=== PATIENT | female | born 1965 | race Caucasian/White ===

== ENCOUNTER 2016-11-08 11:37 | Emergency (ER) | payer SELFPAY ==
[~2016-11-08 11:37] MED LIST: Sodium Chloride 0.9% 1,000 ML BAG ONE
[2016-11-08] MEDS ORDERED: HYDROcodone/Acetaminophen 5/325 mg Tablet ONE (12:11)
[2016-11-08] MEDS ORDERED: Lorazepam 1 MG TAB ONE (12:11)
--- NOTE | 2016-11-08 12:39 | CT ---
CT BRAIN Date: 11-08-16 Provided Clinical History: Headache. Technique: CT data was acquired through the brain without contrast. FINDINGS: Comparison is made with 07-29-16. The ventricular system is unchanged in size and morphology. Right parietal ventriculostomy catheter is redemonstrated in similar position. There is no evidence for discontinuity of the radiopaque po rtions of the shunt catheter. There is no evidence for intracranial hemorrhage or mass effect. The extracranial soft tissues demonstrate no acute findings. IMPRESSION: No evidence for intracranial hemorrhage, ventriculomegaly or mass effect. POS: [facility]
--- NOTE | 2016-11-08 13:19 | RAD ---
SHUNT SERIES: Date: 11-08-16 Provided Clinical History: Headache. FINDINGS: There is intact appearance to the [employer] shunt tubing coursing over the right chest and right abdomen wi th the tip overlying the pelvis. The cardiac and mediastinal silhouette is within normal limits. T here is no focal consolidation, pleural fluid or pneumothorax apparent. The abdominal bowel gas pat tern is nonspecific. Cholecystectomy clips are seen in the right upper quadrant. Surgical degenera tive changes are seen. IMPRESSION: No radiographic evidence for shunt catheter discontinuity. POS: [facility]
[2016-11-08 14:01] LABS: #Basophils 0.1 thou/uL (0.0-0.2); #Eosinphils 0.1 thou/uL (0.0-0.7); #Lymphocytes 2.5 thou/uL (1.20-3.40); #Monocytes 0.4 thou/uL (0.11-0.59); %Basophils 1.5 % (0.0-1.0); %Eosinophils 1.6 % (0.0-10.0); %Lymphocytes 49.3 % (21.0-51.0); %Monocytes 7.4 % (0.0-10.0); %Neutrophils 40.3 % (42.0-75.0); Hemoglobin 12.3 g/dL (12.0-16.0); Mean Corpuscular HGB CONC 33.5 g/dL (32.0-36.0); Mean Corpuscular Hemoglobin 29.5 pg (27.0-31.0); Mean Corpuscular Volume 87.9 fl (81.0-99.0); Mean Platelet Volume 6.9 fL (7.4-10.4); Platelet Count 215 thou/uL (130-400); RBC Distribution Width 13.5 % (11.5-14.5); Red Blood Cell (RBC) Count 4.18 mill/uL (4.20-5.40)
[2016-11-08 14:16] LABS: ALT (SGPT) 26 U/L (0-55); AST (SGOT) 23 U/L (5-34); Albumin 4.2 g/dL (3.5-5.0); Alkaline Phosphatase 100 U/L (40-150); Anion Gap 17 mmol/L (10-20); BUN (Urea Nitrogen) 12 mg/dL (9.8-20.1); Bilirubin, Total 0.3 mg/dL (0.2-1.2); Calc. Creatinine Clearance 0 mL/min (70-130); Calcium 9.4 mg/dL (7.8-10.44); Carbon Dioxide 24 mmol/L (22-29); Chloride 105 mmol/L (98-107); Estimated GFR-MDRD 84; Globulin 3.1 g/dL (2.4-3.5); Glucose 109 mg/dL (70-105); Potassium 4.5 mmol/L (3.5-5.1); Protein, Total 7.3 g/dL (6.0-8.3); Sodium 141 mmol/L (136-145)
[2016-11-08 14:20] LABS: Bilirubin Negative (Negative); Blood, Urine Moderate (Negative); Clarity Slightly Cloudy (Clear); Glucose, Urine (Dipstick) Negative (Negative); Leukocyte Large (Negative); Nitrite Negative (Negative); Protein, Urine (Dipstick) Negative (Neg-Trace); Urobilinogen 0.2 mg/dL (0.2-1.0)
[2016-11-08] MEDS ORDERED: diphenhydrAMINE HCl 50 MG/ML 1 ML VIAL ONE (14:24)
[2016-11-08] MEDS ORDERED: Ketorolac Tromethamine 30 MG/ML VIAL ONE (14:24)
[2016-11-08] MEDS ORDERED: Metoclopramide HCl 10 MG/2 ML VIAL ONE (14:24)
[2016-11-08 14:29] LABS: Bacteria/HPF 2+ HPF (None Seen); WBC/HPF 21-50 HPF (0-3)
[2016-11-08 14:32] LABS: Amphetamine Not Detected (NotDetected); Barbiturates Screen Not Detected (NotDetected); Benzodiazepine Screen Not Detected (NotDetected); Cocaine Metabolite Screen Not Detected (NotDetected); Medtox Control Line Valid? VALID (VALID); Methadone Not Detected (NotDetected); Methamphetamine Not Detected (NotDetected); Opiate Screen Detected (NotDetected); Oxycodone Screen Not Detected (NotDetected); Phencyclidine (PCP) Not Detected (NotDetected); THC/Cannabinoid Screen Not Detected (NotDetected); Tricyclic Screen Not Detected (NotDetected)
--- NOTE | 2016-11-08 15:35 | ERRECORD ---
[facility] EMERGENCY RECORD HPI HEADACHE (12:06 ABUS) CHIEF COMPLAINT: Patient presents for evaluation of headache. HISTORIAN: History provided by patient, 51 yr old F with PMH of normal pressure hydrocephalus, seizures, migraine HUBBARD, asthma, MGMT CONSULTANT shunt here with HUBBARD, vision, changes, and 1 episode of bladder incontinence but no loss of bowel function, perineal or saddle anesthesia, fever. Can walk and has normal sensation to arms and legs. LOCATION: Symptoms are generalized. QUALITY: Pain is dull in nature, described as aching. SEVERITY: Currently symptoms are moderate. TIME COURSE: Gradual onset of symptoms, 2 days, Symptoms are worsening, Symptoms are constant. ASSOCIATED WITH FEMALE: No associated aura, No associated chills, No associated fever, No associated focal weakness, No posterior circulation symptoms present, No associated trauma, No associated tingling, No associated numbness. EXACERBATED BY: Patient's condition exacerbated by light. RELIEVED BY: Patient's condition relieved by nothing. ROS (12:09 ABUS) CONSTITUTIONAL: Negative constitutional review of systems, Historian denies chills, denies fever. EYES: Historian denies eye pain, denies eye redness, denies eye discharge, denies itching, denies nystagmus, reports vision changes. ENT: Negative ears, nose, throat review of systems, Historian denies rhinorrhea, denies sore throat, denies voice changes. CARDIOVASCULAR: Negative cardiovascular review of systems, Historian denies chest pain, denies palpitations. RESPIRATORY: Negative respiratory review of systems, Historian denies cough, denies shortness of breath. GI: Negative gastrointestinal review of systems, Historian denies abdominal pain, denies constipation, denies diarrhea, denies nausea, denies vomiting. GENITOURINARY FEMALE: Negative genitourinary review of systems, Historian denies dysuria, denies frequency. MUSCULOSKELETAL: Negative musculoskeletal review of systems, Historian denies back pain, denies fall, denies injury. SKIN: Negative skin review of systems, Historian denies rash, denies skin changes. NEUROLOGIC: Historian denies confusion, denies dizziness, denies focal weakness, denies gait changes, reports headache, denies paralysis, denies seizures, denies sensory changes, denies speech changes, denies tremors. HEMO/LYMPHATIC: Normal hematologic/lymphatic system review, Historian denies abnormal blood clotting. ALLERGIC/IMMUNOLOGIC: Normal allergy/immunologic system review, Historian denies frequent infections. &a-1R&a+25V*p+0X*[id number]*c202B*c15G*c2P*p-0X&a-25V&a+1R Name: Beverly Estrella : 1965 F51 MedRec: [id number] AcctNum: [id number] Prepared: Chana Nov 08, 2016 15:30 by Interface Page 1 of 4 pMD [facility] EMERGENCY RECORD PAST MEDICAL HISTORY (11:48 MDEB) MEDICAL HISTORY: Notes: afib. Past medical history includes cardiac history, arrhythmia, atrial fibrillation, Past medical history includes neurological disease, migraine headaches, generalized seizures, Past medical history includes pulmonary disease, asthma Hydrocephalus dxed 2001, MGMT CONSULTANT shunt, diabetes. FEMALE SURGICAL HISTORY: Surgical history of cholecystectomy, laparoscopic, Surgical history of section, Surgical history of hysterectomy, MGMT CONSULTANT SHUNT 2008, BIOPSY OF BRAIN-2008, BLADDER SUSPENSION. PSYCHIATRIC HISTORY: Psychiatric history includes history of suicidal ideations, Psychiatric history includes history of suicide attempts, Psychiatric history includes, bipolar disorder. suicide attempt x 2 years ags per [place] [employer]. bi-polar. SOCIAL HISTORY: Patient denies alcohol use, Patient denies drug use, Patient has no smoking history, Lives at home, alone, SON LIVES WITH PT OCCASIONALLY. KNOWN ALLERGIES morphine (Unconfirmed): Reaction: Hives morphine (bulk) ondansetron HCl (Unconfirmed): Reaction: Hives Penicillins Sulfa (Sulfonamide Antibiotics) CURRENT MEDICATIONS No recorded medications VITAL SIGNS (11:44 MDEB) VITAL SIGNS: BP: 131/82, Pulse: 77, Resp: 20, Temp: 96.8 (Tympanic), Pain: 9, O2 sat: 95 on Room Air, Time: 11/08/2016 11:44. PHYSICAL EXAM (12:09 ABUS) CONSTITUTIONAL: Vital Signs Reviewed, Patient afebrile, Pulse normal, Blood pressure normal, Respiratory rate normal, Patient appears non toxic, Patient appears, in moderate pain distress, Patient alert and oriented to person, place and time. HEAD: Head exam normal, Head exam included findings of head atraumatic, normocephalic. EYES: Eye exam normal, Eye exam included findings of eyelids normal to inspection, Pupils equally round and reactive to light, Extraocular muscles intact, no nystagmus. ENT: ENT exam normal, Ear exam normal, external ear normal, tympanic membranes normal, no bleeding, Pharynx exam normal, Uvula exam normal, Tonsil exam normal, Mouth exam normal, mucous membranes moist, teeth normal. NECK: Neck exam normal, Neck exam included findings of normal range of motion, Trachea midline, no meningeal signs, no cervical adenopathy, no tenderness. RESPIRATORY CHEST: Respiratory and chest exam normal, Respiratory &a-1R&a+25V*p+0X*[id number]*c202B*c15G*c2P*p-0X&a-25V&a+1R Name: Beverly Estrella : 1965 F51 MedRec: [id number] AcctNum: [id number] Prepared: MonNov 08, 2016 15:30 by Interface Page 2 of 4 pMD [facility] EMERGENCY RECORD exam included findings of no respiratory distress, Breath sounds clear. CARDIOVASCULAR: Cardiovascular assessment normal, Cardiovascular exam included findings of heart rate regular rate and rhythm, Heart sounds normal. ABDOMEN FEMALE: Abdominal exam included findings of abdomen nontender, Bowel sounds normal, no distension, no mass, no pulsatile masses, no peritoneal signs, no rigidity, no guarding, no rebound, Rovsing's sign absent. BACK: Back exam normal, Back exam included findings of normal inspection, range of motion normal, no tenderness. UPPER EXTREMITY: Upper extremity exam normal, Upper extremity exam included findings of inspection normal, Range of motion normal, Motor strength normal, Sensation intact, Radial pulse normal. LOWER EXTREMITY: Lower extremity exam normal, Lower extremity exam included findings of inspection normal, Range of motion normal, Motor strength normal, Sensation intact, Posterior tibial pulse normal, Pedal pulse normal. NEURO: Berkley coma scale 15, Neuro exam findings include patient oriented to person, place and time, Speech normal, Cranial nerves intact, no focal motor deficits, no focal sensory deficits. SKIN: Skin exam normal, Skin exam included findings of skin warm, dry, and normal in color, no rash. PSYCHIATRIC: Psychiatric exam normal, Normal affect. MEDICATION ADMINISTRATION SUMMARY Drug Name: diphenhydrAMINE injection, Dose Ordered: 12.5 mg, Route: IV Push, Status: Given, Time: 14:32 11/08/2016, Drug Name: ketorolac injection, Dose Ordered: 30 mg, Route: IV Push, Status: Given, Time: 14:30 11/08/2016, Drug Name: sodium chloride 0.9 % intravenous, Dose Ordered: 1 L, Route: IV Fluid Infusion, Status: Given, Time: 14:25 11/08/2016, Drug Name: metoclopramide injection, Dose Ordered: 10 mg, Route: IV Push, Status: Given, Time: 14:20 11/08/2016, Drug Name: LORazepam oral, Dose Ordered: 1 mg, Route: Oral, Status: Given, Time: 12:38 11/08/2016, Drug Name: HYDROcodone-acetaminophen, Dose Ordered: 5/325 tab(s), Route: Oral, Status: Given, Time: 12:30 11/08/2016, Detailed record available in Medication Service section. DOCTOR NOTES (12:11 ABUS) TEXT: 51 yr old F with PMH of normal pressure hydrocephalus, seizures, migraine HUBBARD, asthma, MGMT CONSULTANT shunt here with HUBBARD, vision, changes, and 1 episode of bladder incontinence but no loss of bowel function, perineal or saddle anesthesia, fever. EXAM: Looks uncomfortable but moving all extremities and has normal pupils and CN findings. DDX: Hydrocephalus, Normal Pressure Hydrocephalus, Migraine Headache, Tension Headache, Cluster Headache, Typical Headache, Trigeminal &a-1R&a+25V*p+0X*[id number]*c202B*c15G*c2P*p-0X&a-25V&a+1R Name: Beverly Estrella : 1965 F51 MedRec: [id number] AcctNum: [id number] Prepared: Chana Nov 08, 2016 15:30 by Interface Page 3 of 4 pMD [facility] EMERGENCY RECORD Neuralgia. PLAN: Analgesics, anxiolytic DISPO: Pending results and response to treatment UPDATE/REASSESSMENT: Pt felt better after headache cocktail. She denies any dysuria, increased frequency of urination, or vaginal d/c. She still has some peripheral vision changes but wants to go home. I discussed this case with Dimpel ([place] with NSGY) who said to have her f/u as outpt with their clinic this week but does not need a tap or appear to be related to her shunt. Likely a migraine HUBBARD but think she needs to have f/u this week. We discussed the importance of this and she verbalized understanding and agreement and felt safe with this plan. Final Dispo: D/C Home with NSGY follow up and strict return precautions. All results of testing and evaluation were shared with the patient who verbalized understanding and agreement with the plan of care. Level of Complexity / Medical Decision Making: Moderate. PROBLEM LIST No recorded problems DIAGNOSIS (15:23 ABUS) FINAL: PRIMARY: Headache. PRESCRIPTION No recorded prescriptions DISPOSITION (15:23 ABUS) PATIENT: Disposition Type: Discharge, Disposition: *Discharge Home, Condition: Good. [place]ett: ABUS=MD Gonzales, Chuy LIMAEB=DANO Regalado, Adelina &a-1R&a+25V*p+0X*[id number]*c202B*c15G*c2P*p-0X&a-25V&a+1R Name: Beverly Estrella : 1965 F51 MedRec: [id number] AcctNum: [id number] Prepared: Chana Nov 08, 2016 15:30 by Interface Page 4 of 4 pMD [facility]TDD
--- NOTE | 2016-11-08 15:41 | PICIS ---
[facility] EMERGENCY RECORD TRIAGE (11:48 MDEB) PATIENT: NAME: Beverly Estrella, AGE: 51, GENDER: female, : Mon1965, TIME OF GREET: MonNov 08, 2016 11:38, PREFERRED LANGUAGE: Romansh, RACE: WHITE, ETHNICITY: Not or , FALL RISK: NO, ECODE BILLING MAP: [facility], SSN: [id number], Zip Code: [address], KG WEIGHT: 72.57, PHONE: , , , PERSON ID: [id number], PCP: Maida BENITEZ AUBREY. (11:48 MDEB) TRIAGE NOTES: HEADACHE - PT HAS SHUNT TO R SIDE PARIETAL. VISION DISTRUBANCES. STARTED AT 18:00 LAST NIGHT. NAUSEA. (11:48 MDEB) COMPLAINT: HEADACHE. (11:48 MDEB) ADMISSION: URGENCY: 3 Urgent, ADMISSION SOURCE: Home, TRANSPORT: Walk-in, BED: TRIAGE. (11:48 MDEB) ASSESSMENT: Assessment: SHUMT IS SOFT TO PALPATION. PT REPORTS SHE HAS NOT SEEN HER NEUROSURGEON IN 3 YEARS. (11:48 MDEB) PAIN: Patient complains of pain described as, aching, on a scale 0-10 patient rates pain as 9. (11:48 MDEB) IMMUNIZATIONS: Tetanus immunization up to date. (11:48 MDEB) TRIAGE SCREENING: Patient denies suicidal ideation, Domestic violence. (11:48 MDEB) PROVIDERS: TRIAGE NURSE: Adelina Regalado RN. (11:48 MDEB) VITAL SIGNS: BP 131/82, Pulse 77, Resp 20, Temp 96.8, (Tympanic), Pain 9, O2 Sat 95, on Room Air, Time 11/08/2016 11:44. (11:44 MDEB) KNOWN ALLERGIES morphine (Unconfirmed): Reaction: Hives morphine (bulk) ondansetron HCl (Unconfirmed): Reaction: Hives Penicillins Sulfa (Sulfonamide Antibiotics) CURRENT MEDICATIONS No recorded medications VITAL SIGNS (11:44 MDEB) VITAL SIGNS: BP: 131/82, Pulse: 77, Resp: 20, Temp: 96.8 (Tympanic), Pain: 9, O2 sat: 95 on Room Air, Time: 11/08/2016 11:44. NURSING ASSESSMENT: HEADACHE (12:49 MDEB) CONSTITUTIONAL: Patient arrives ambulatory, Gait steady, History obtained from patient, Patient appears, anxious, in distress due to pain, uncomfortable, Patient cooperative, Patient alert, Oriented to person, place and time, Skin warm, Skin dry, Skin normal in color, Mucous membranes pink, Mucous membranes moist, Patient is well-groomed, Patient complains of HEADACHE - WORST REGION BEHIND L EYE, PT HAS SHUNT TO R PARIETAL - PT REPORTS THIS HEADACHE IS SIMILAR TO HOW SHE FELT WHEN HER SHUNT WAS ORIGINALLY PLACED. SHE ALSO STATES SHE HAS VISION DISTURBANCE &a-1R&a+25V*p+0X*[id number]*c202B*c15G*c2P*p-0X&a-25V&a+1R Name: Beverly Estrella : 1965 F51 MedRec: [id number] AcctNum: [id number] Prepared: Chana Nov 08, 2016 16:03 by Interface Page 1 of 12 pMD [facility] EMERGENCY RECORD WHEREBY PART OF THE VIEW IS MISSING ON THE SIDE. PAIN: aching pain, constant, on a scale 0-10 patient rates pain as 9. HEADACHE: history of migraines, Pain is atypical for migraines, PT HAS R PARIETAL SHUNT, Associated with nausea, Precipitating factors include fatigue, Notes: VISION DISTURBANCE. NEURO: Pupils equally round and reactive to light, Left pupil 3 mm in size, Right pupil 3 mm in size, Able to close eyes, Face symmetrical, Speech normal, GCS:, Eye opening: (4) - Spontaneous, Verbal: (5) - Oriented/conversive, Motor: (6) - Obeys commands/Spontaneous, Notes: DENIES NUMBNESS OR TINGLING TO ANY PART. ENT: Ear assessment findings include ear normal to inspection, Nasal assessment findings include nose normal to inspection, Mouth and throat assessment findings include mouth inspection normal, Mucous membranes pink, and moist, Able to swallow, Speech normal. NOTES: Emotional support needed and given, Patient tolerated procedure well. SAFETY: Side rails up, Cart/Stretcher in lowest position, Family at bedside, Call light within reach, Hospital ID band on. NURSING PROCEDURE: IV (13:40 MDEB) PATIENT IDENITIFIER: Patient actively involved in identification process, Patient's identity verified by patient stating name, Patient's identity verified by hospital ID bracelet. IV SITE 1: IV therapy indicated for hydration, IV therapy indicated for medication administration, IV established, to the left forearm, using a 20 gauge catheter, in one attempt, IV site prepped with ALCOHOL, Saline lock established, Flushed with normal saline (mls): 10, Notes: LABS ALREADY DRAWN. FOLLOW-UP SITE 1: After procedure, sterile transparent dressing applied. NOTES: Emotional support needed and given, Patient tolerated procedure well. NURSING PROCEDURE: TRANSPORT TO TESTS (12:10 [facility]) PATIENT IDENTIFIER: Patient actively involved in identification process, Patient's identity verified by patient stating name, Patient's identity verified by hospital ID bracelet. TRANSPORT TO TESTS: Transport indicated to facilitate diagnosis, Patient transported to CT scan, via wheelchair, Accompanied by x-ray facilities technician. NOTES: Emotional support needed and given, Patient tolerated procedure well. ORDER DETAILS Order Name: CBC with Differential, Status: Active, Time: 13:38 11/08/2016, User: KATHERINE, &a-1R&a+25V*p+0X*[id number]*c202B*c15G*c2P*p-0X&a-25V&a+1R Name: Beverly Estrella : 1965 F51 MedRec: [id number] AcctNum: [id number] Prepared: MonNov 08, 2016 16:03 by Interface Page 2 of 12 D [facility] EMERGENCY RECORD - Ordered for: MD Rolon Anthony, - Entered by: MD Rolon Anthony - Chana Nov 08, 2016 13:38, - Quantity: 1, Order Name: Comprehensive Metabolic Panel, Status: Active, Time: 13:38 11/08/2016, User: KATHERINE, - Ordered for: MD Rolon Anthony, - Entered by: MD Rolon Anthony - Chana Nov 08, 2016 13:38, - Quantity: 1, Order Name: CT Brain WO Con, Status: Active, Time: 12:04 11/08/2016, User: KATHERINE, - Ordered for: MD Rolon Anthony, - Entered by: MD Rolon Anthony - Tue Nov 08, 2016 12:04, - Quantity: 1, Order Name: Drug Screen, Urine, Status: Active, Time: 13:40 11/08/2016, User: ABUS, - Ordered for: MD Rolon Anthony, - Entered by: MD Rolon Anthony - Tue Nov 08, 2016 13:40, - Quantity: 1, Order Name: SALINE LOCK, Status: Done, Time: 14:17 11/08/2016, User: KRISTIE, - Ordered for: MD Rolon Anthony, - Entered by: MD Rolon Anthony - Tue Nov 08, 2016 13:38, - Quantity: 1, Order Name: Thyroid Stimulating Hormone, Status: Active, Time: 13:40 11/08/2016, User: ABUS, - Ordered for: MD Rolon Anthony, - Entered by: MD Rolon Anthony - Tue Nov 08, 2016 13:40, - Quantity: 1, Order Name: Urinalysis with Microscopic, Status: Active, Time: 13:40 11/08/2016, User: ABUS, - Ordered for: MD Rolon Anthony, - Entered by: MD Rolon Anthony - Tue Nov 08, 2016 13:40, - Quantity: 1, Order Name: XR Shuntogram, Status: Active, Time: 12:02 11/08/2016, User: AB, - Ordered for: MD Rolon Anthony, - Entered by: MD Rolon Anthony - Tue Nov 08, 2016 12:02, - Quantity: 1. MEDICATION ADMINISTRATION SUMMARY Drug Name: diphenhydrAMINE injection, Dose Ordered: 12.5 mg, Route: IV Push, Status: Given, Time: 14:32 11/08/2016, Drug Name: ketorolac injection, Dose Ordered: 30 mg, Route: IV Push, Status: Given, Time: 14:30 11/08/2016, Drug Name: sodium chloride 0.9 % intravenous, Dose Ordered: 1 L, Route: IV Fluid Infusion, Status: Given, Time: 14:25 11/08/2016, Drug Name: metoclopramide injection, Dose Ordered: 10 mg, Route: IV Push, Status: Given, Time: 14:20 11/08/2016, Drug Name: LORazepam oral, Dose Ordered: 1 mg, Route: Oral, Status: &a-1R&a+25V*p+0X*a4900W*c202B*c15G*c2P*p-0X&a-25V&a+1R Name: Beverly Estrella : 1965 F51 MedRec: [id number] AcctNum: [id number] Prepared: MonNov 08, 2016 16:03 by Interface Page 3 of 12 pMD [facility] EMERGENCY RECORD Given, Time: 12:38 11/08/2016, Drug Name: HYDROcodone-acetaminophen, Dose Ordered: 5/325 tab(s), Route: Oral, Status: Given, Time: 12:30 11/08/2016, Detailed record available in Medication Service section. MEDICATION SERVICE diphenhydrAMINE injection: Order: diphenhydrAMINE injection (diphenhydramine HCl) - Dose: 12.5 mg : IV Push Schedule: Now Ordered by: Chuy Rolon MD Entered by: Chuy Rolon MD MonNov 08, 2016 13:39 Documented as given by: Adelina Regalado RN MonNov 08, 2016 14:32 Patient, Medication, Dose, Route and Time verified prior to administration. Amount given: 12.5 MG, IV SITE #1 IVP, initial medication, Slowly, Catheter placement confirmed via flush prior to administration, IV site without signs or symptoms of infiltration during medication administration, No swelling during administration, No drainage during administration, IV flushed after administration, Correct patient, time, route, dose and medication confirmed prior to administration, Patient advised of actions and side-effects prior to administration, Allergies confirmed and medications reviewed prior to administration, Patient in position of comfort, Side rails up, Cart in lowest position. HYDROcodone-acetaminophen: Order: HYDROcodone-acetaminophen (hydrocodone bitartrate/acetaminophen) - Dose: 5/325 tab(s) : Oral POTENTIAL ALLERGY REACTION: 'morphine (bulk) [morphine/morphine sulfate]' - Not a true drug allergy Schedule: Now Ordered by: Chuy Rolon MD Entered by: Chuy Rolon MD MonNov 08, 2016 12:05 , Acknowledged by: Adelina Regalado RN MonNov 08, 2016 12:10 Documented as given by: Adelina Regalado RN MonNov 08, 2016 12:30 Patient, Medication, Dose, Route and Time verified prior to administration. Amount given: 1 tab, Site: Medication administered P.O., Correct patient, time, route, dose and medication confirmed prior to administration, Patient advised of actions and side-effects prior to administration, Allergies confirmed and medications reviewed prior to administration, Patient in position of comfort, Side rails up, Cart in lowest position, Family at bedside. ketorolac injection: Order: ketorolac injection (ketorolac tromethamine) - Dose: 30 mg : IV Push Schedule: Now Ordered by: Chuy Rolon MD Entered by: Chuy Rolon MD MonNov 08, 2016 13:39 Documented as given by: Adelina Regalado RN MonNov 08, 2016 14:30 Patient, Medication, Dose, Route and Time verified prior to administration. &a-1R&a+25V*p+0X*o8050O*c202B*c15G*c2P*p-0X&a-25V&a+1R Name: Beverly Estrella : 1965 F51 MedRec: [id number] AcctNum: [id number] Prepared: MonNov 08, 2016 16:03 by Interface Page 4 of 12 pMD [facility] EMERGENCY RECORD Amount given: 30 MG, IV SITE #1 IVP, initial medication, Slowly, Catheter placement confirmed via flush prior to administration, IV site without signs or symptoms of infiltration during medication administration, No swelling during administration, No drainage during administration, IV flushed after administration, Correct patient, time, route, dose and medication confirmed prior to administration, Patient advised of actions and side-effects prior to administration, Allergies confirmed and medications reviewed prior to administration, Patient in position of comfort, Side rails up, Cart in lowest position. LORazepam oral: Order: LORazepam oral (lorazepam) - Dose: 1 mg : Oral Schedule: Now Ordered by: Chuy Rolon MD Entered by: Chuy Rolon MD MonNov 08, 2016 12:05 , Acknowledged by: Adelina Regalado RN MonNov 08, 2016 12:10 Documented as given by: Adelina Regalado RN MonNov 08, 2016 12:38 Patient, Medication, Dose, Route and Time verified prior to administration. Amount given: 1 mg, Site: Medication administered P.O., Correct patient, time, route, dose and medication confirmed prior to administration, Patient advised of actions and side-effects prior to administration, Allergies confirmed and medications reviewed prior to administration, Patient in position of comfort, Side rails up, Cart in lowest position, Family at bedside. metoclopramide injection: Order: metoclopramide injection (metoclopramide HCl) - Dose: 10 mg : IV Push Schedule: Now Ordered by: Chuy Rolon MD Entered by: Chuy Rolon MD MonNov 08, 2016 13:39 Documented as given by: Adelina Regalado RN MonNov 08, 2016 14:20 Patient, Medication, Dose, Route and Time verified prior to administration. Amount given: 10 MG, IV SITE #1 IV fluids established for hydration, IV SITE #1 into left forearm, IV SITE #1 1st bag hung, IV SITE #1 bolus of 1000 ml established, IV SITE #1 Rate of bolus, 1000 ml/hr, via primary tubing, IV SITE #1 on IV pump, Catheter placement confirmed via flush prior to administration, IV site without signs or symptoms of infiltration during medication administration, No swelling during administration, No drainage during administration, IV flushed after administration, Correct patient, time, route, dose and medication confirmed prior to administration, Patient advised of actions and side-effects prior to administration, Allergies confirmed and medications reviewed prior to administration, Patient in position of comfort, Side rails up, Cart in lowest position. sodium chloride 0.9 % intravenous: Order: sodium chloride 0.9 % intravenous (0.9 % sodium chloride) - Dose: 1 L : IV Fluid Infusion Schedule: Now Ordered by: Chuy Rolon MD &a-1R&a+25V*p+0X*e6948M*c202B*c15G*c2P*p-0X&a-25V&a+1R Name: Beverly Estrella : 1965 F51 MedRec: [id number] AcctNum: [id number] Prepared: MonNov 08, 2016 16:03 by Interface Page 5 of 12 pMD [facility] EMERGENCY RECORD Entered by: Chuy Rolon MD MonNov 08, 2016 13:39 Documented as given by: Adelina Regalado RN herman Nov 08, 2016 14:25 Patient, Medication, Dose, Route and Time verified prior to administration. Amount given: 1 L, IV SITE #1 IV fluids established for hydration, IV SITE #1 1st bag hung, IV SITE #1 bolus of 1000 ml established, IV SITE #1 Rate of bolus, 1000 ml/hr, via primary tubing, IV SITE #1 on IV pump, Catheter placement confirmed via flush prior to administration, IV site without signs or symptoms of infiltration during medication administration, No swelling during administration, No drainage during administration, IV flushed after administration, Correct patient, time, route, dose and medication confirmed prior to administration, Patient advised of actions and side-effects prior to administration, Allergies confirmed and medications reviewed prior to administration, Patient in position of comfort, Side rails up, Cart in lowest position. HPI HEADACHE (12:06 ABUS) CHIEF COMPLAINT: Patient presents for evaluation of headache. HISTORIAN: History provided by patient, 51 yr old F with PMH of normal pressure hydrocephalus, seizures, migraine HUBBARD, asthma, CHEMICAL MACHINE TENDER shunt here with HUBBARD, vision, changes, and 1 episode of bladder incontinence but no loss of bowel function, perineal or saddle anesthesia, fever. Can walk and has normal sensation to arms and legs. LOCATION: Symptoms are generalized. QUALITY: Pain is dull in nature, described as aching. SEVERITY: Currently symptoms are moderate. TIME COURSE: Gradual onset of symptoms, 2 days, Symptoms are worsening, Symptoms are constant. ASSOCIATED WITH FEMALE: No associated aura, No associated chills, No associated fever, No associated focal weakness, No posterior circulation symptoms present, No associated trauma, No associated tingling, No associated numbness. EXACERBATED BY: Patient's condition exacerbated by light. RELIEVED BY: Patient's condition relieved by nothing. ROS (12:09 ABUS) CONSTITUTIONAL: Negative constitutional review of systems, Historian denies chills, denies fever. EYES: Historian denies eye pain, denies eye redness, denies eye discharge, denies itching, denies nystagmus, reports vision changes. ENT: Negative ears, nose, throat review of systems, Historian denies rhinorrhea, denies sore throat, denies voice changes. CARDIOVASCULAR: Negative cardiovascular review of systems, Historian denies chest pain, denies palpitations. RESPIRATORY: Negative respiratory review of systems, Historian denies cough, denies shortness of breath. GI: Negative gastrointestinal review of systems, Historian denies &a-1R&a+25V*p+0X*m4882R*c202B*c15G*c2P*p-0X&a-25V&a+1R Name: Beverly Estrella : 1965 F51 MedRec: [id number] AcctNum: [id number] Prepared: Chana Nov 08, 2016 16:03 by Interface Page 6 of 12 pMD [facility] EMERGENCY RECORD abdominal pain, denies constipation, denies diarrhea, denies nausea, denies vomiting. GENITOURINARY FEMALE: Negative genitourinary review of systems, Historian denies dysuria, denies frequency. MUSCULOSKELETAL: Negative musculoskeletal review of systems, Historian denies back pain, denies fall, denies injury. SKIN: Negative skin review of systems, Historian denies rash, denies skin changes. NEUROLOGIC: Historian denies confusion, denies dizziness, denies focal weakness, denies gait changes, reports headache, denies paralysis, denies seizures, denies sensory changes, denies speech changes, denies tremors. HEMO/LYMPHATIC: Normal hematologic/lymphatic system review, Historian denies abnormal blood clotting. ALLERGIC/IMMUNOLOGIC: Normal allergy/immunologic system review, Historian denies frequent infections. PAST MEDICAL HISTORY (11:48 MDEB) MEDICAL HISTORY: Notes: afib. Past medical history includes cardiac history, arrhythmia, atrial fibrillation, Past medical history includes neurological disease, migraine headaches, generalized seizures, Past medical history includes pulmonary disease, asthma Hydrocephalus dxed 2001, CHEMICAL MACHINE TENDER shunt, diabetes. FEMALE SURGICAL HISTORY: Surgical history of cholecystectomy, laparoscopic, Surgical history of section, Surgical history of hysterectomy, CHEMICAL MACHINE TENDER SHUNT 2008, BIOPSY OF BRAIN-2008, BLADDER SUSPENSION. PSYCHIATRIC HISTORY: Psychiatric history includes history of suicidal ideations, Psychiatric history includes history of suicide attempts, Psychiatric history includes, bipolar disorder. suicide attempt x 2 years ags per [place] police. bi-polar. SOCIAL HISTORY: Patient denies alcohol use, Patient denies drug use, Patient has no smoking history, Lives at home, alone, SON LIVES WITH PT OCCASIONALLY. PHYSICAL EXAM (12:09 ABUS) CONSTITUTIONAL: Vital Signs Reviewed, Patient afebrile, Pulse normal, Blood pressure normal, Respiratory rate normal, Patient appears non toxic, Patient appears, in moderate pain distress, Patient alert and oriented to person, place and time. HEAD: Head exam normal, Head exam included findings of head atraumatic, normocephalic. EYES: Eye exam normal, Eye exam included findings of eyelids normal to inspection, Pupils equally round and reactive to light, Extraocular muscles intact, no nystagmus. ENT: ENT exam normal, Ear exam normal, external ear normal, tympanic membranes normal, no bleeding, Pharynx exam normal, Uvula exam normal, Tonsil exam normal, Mouth exam normal, mucous membranes moist, teeth normal. NECK: Neck exam normal, Neck exam included findings of normal &a-1R&a+25V*p+0X*w9815F*c202B*c15G*c2P*p-0X&a-25V&a+1R Name: Beverly Estrella : 1965 F51 MedRec: [id number] AcctNum: [id number] Prepared: Chana Nov 08, 2016 16:03 by Interface Page 7 of 12 pMD [facility] EMERGENCY RECORD range of motion, Trachea midline, no meningeal signs, no cervical adenopathy, no tenderness. RESPIRATORY CHEST: Respiratory and chest exam normal, Respiratory exam included findings of no respiratory distress, Breath sounds clear. CARDIOVASCULAR: Cardiovascular assessment normal, Cardiovascular exam included findings of heart rate regular rate and rhythm, Heart sounds normal. ABDOMEN FEMALE: Abdominal exam included findings of abdomen nontender, Bowel sounds normal, no distension, no mass, no pulsatile masses, no peritoneal signs, no rigidity, no guarding, no rebound, Rovsing's sign absent. BACK: Back exam normal, Back exam included findings of normal inspection, range of motion normal, no tenderness. UPPER EXTREMITY: Upper extremity exam normal, Upper extremity exam included findings of inspection normal, Range of motion normal, Motor strength normal, Sensation intact, Radial pulse normal. LOWER EXTREMITY: Lower extremity exam normal, Lower extremity exam included findings of inspection normal, Range of motion normal, Motor strength normal, Sensation intact, Posterior tibial pulse normal, Pedal pulse normal. NEURO: [place] coma scale 15, Neuro exam findings include patient oriented to person, place and time, Speech normal, Cranial nerves intact, no focal motor deficits, no focal sensory deficits. SKIN: Skin exam normal, Skin exam included findings of skin warm, dry, and normal in color, no rash. PSYCHIATRIC: Psychiatric exam normal, Normal affect. EVENTS TRANSFER: Triage to Emergency Triage. (MonNov 08, 2016 11:48 MDEB) Emergency Triage to Main ED -05. (11:49 MDEB) Removed from Emergency Main ED -05. (15:47 MDEB) DOCTOR NOTES (12:11 ABUS) TEXT: 51 yr old F with PMH of normal pressure hydrocephalus, seizures, migraine HUBBARD, asthma, CHEMICAL MACHINE TENDER shunt here with HUBBARD, vision, changes, and 1 episode of bladder incontinence but no loss of bowel function, perineal or saddle anesthesia, fever. EXAM: Looks uncomfortable but moving all extremities and has normal pupils and CN findings. DDX: Hydrocephalus, Normal Pressure Hydrocephalus, Migraine Headache, Tension Headache, Cluster Headache, Typical Headache, Trigeminal Neuralgia. PLAN: Analgesics, anxiolytic DISPO: Pending results and response to treatment UPDATE/REASSESSMENT: Pt felt better after headache cocktail. She denies any dysuria, increased frequency of urination, or vaginal d/c. She still has some peripheral vision changes but wants to go home. I discussed this case with Dimple (PA with NSGY) who said to have her &a-1R&a+25V*p+0X*y4705N*c202B*c15G*c2P*p-0X&a-25V&a+1R Name: Beverly Estrella : 1965 F51 MedRec: [id number] AcctNum: [id number] Prepared: MonNov 08, 2016 16:03 by Interface Page 8 of 12 pMD [facility] EMERGENCY RECORD f/u as outpt with their clinic this week but does not need a tap or appear to be related to her shunt. Likely a migraine HUBBARD but think she needs to have f/u this week. We discussed the importance of this and she verbalized understanding and agreement and felt safe with this plan. Final Dispo: D/C Home with NSGY follow up and strict return precautions. All results of testing and evaluation were shared with the patient who verbalized understanding and agreement with the plan of care. Level of Complexity / Medical Decision Making: Moderate. PROBLEM LIST No recorded problems DIAGNOSIS (15:23 ABUS) FINAL: PRIMARY: Headache. DISPOSITION PATIENT: Disposition Type: Discharge, Disposition: *Discharge Home, Condition: Good. (15:23 ABUS) Patient left the department. (15:47 MDDARNELL) INSTRUCTION (15:24 ABUS) DISCHARGE: CEPHALGIA MIGRAINE HEADACHE. FOLLOWUP: Nelson BENITEZ., CRIST[place], [facility] [address], [phone], Maida YAO, BOLIVAR, Neurosurgery, [address] [place] [address], [address], [facility] [address], [phone], Follow up with Primary Care Physician in 1-2 days. SPECIAL: As discussed in the ED, please keep any upcoming appointments with your primary doctor or call the referral provided to you today to establish a follow up evaluation or ongoing medical care. Please come back if you start to have fever, vomiting, changes in vision, changes in gait, numbness or tingling, or any symptoms that concern you. PRESCRIPTION No recorded prescriptions ADMIN (15:24 ABUS) DIGITAL SIGNATURE: MD Gonzales, Chuy. RESULTS LABORATORY: Urinalysis with Microscopic Collection DT: MonNov 08, 2016 14:15, Color Yellow , Range (Yellow), Clarity Slightly Cloudy , Range (Clear), Specific [place], Urine 1.020 , Range (1.005-1.030), pH, Urine 6.0 , Range (5.0-9.0), *Leukocyte Large - H , Range (Negative), Nitrite Negative , Range (Negative), &a-1R&a+25V*p+0X*q0469N*c202B*c15G*c2P*p-0X&a-25V&a+1R Name: Beverly Estrella : 1965 F51 MedRec: [id number] AcctNum: [id number] Prepared: MonNov 08, 2016 16:03 by Interface Page 9 of 12 pMD [facility] EMERGENCY RECORD Protein, Urine (Dipstick) Negative mg/dL, Range (Neg-Trace), Glucose, Urine (Dipstick) Negative mg/dL, Range (Negative), Ketone, Urine Negative mg/dL, Range (Negative), Urobilinogen 0.2 mg/dL, Range (0.2-1.0), Bilirubin Negative , Range (Negative), *Blood, Urine Moderate - H , Range (Negative), *RBC/HPF 11-20 - H HPF, Range (0-3). (14:32 ABUS) Comprehensive Metabolic Panel Collection DT: MonNov 08, 2016 13:54, Sodium 141 mmol/L, Range (136-145), Potassium 4.5 mmol/L, Range (3.5-5.1), Chloride 105 mmol/L, Range (98-107), Carbon Dioxide 24 mmol/L, Range (22-29), Anion Gap 17 mmol/L, Range (10-20), BUN (Urea Nitrogen) 12 mg/dL, Range (9.8-20.1), Creatinine 0.73 mg/dL, Range (0.6-1.1), Estimated GFR-MDRD 84 , Reference Range for Estimated GFR: Greater than 90, mL/min/1.73 m2 NOTE: The MDRD equation has not been validated for use, with the elderly (over 70 years of age), women, patients with, serious comorbid condition or persons with extremes of body size, muscle, mass, or nutritional status. , *Glucose 109 - H mg/dL, Range (70-105), Calcium 9.4 mg/dL, Range (7.8-10.44), Bilirubin, Total 0.3 mg/dL, Range (0.2-1.2), Protein, Total 7.3 g/dL, Range (6.0-8.3), NOTE: Plasma values are generally 0.3 to 0.5 g/dL higher than serum values, due to the presence of fibrinogen. , Albumin 4.2 g/dL, Range (3.5-5.0), Globulin 3.1 g/dL, Range (2.4-3.5), Alb/Glob Ratio 1.4 g/dL, Range (1.2-2.2), Alkaline Phosphatase 100 U/L, Range (40-150), AST (SGOT) 23 U/L, Range (5-34), ALT (SGPT) 26 U/L, Range (0-55). (14:32 ABUS) CBC with Differential Collection DT: MonNov 08, 2016 13:54, White Blood Cell (WBC) Count 5.0 thou/uL, Range (4.8-10.8), *Red Blood Cell (RBC) Count 4.18 - L mill/uL, Range (4.20-5.40), Hemoglobin 12.3 g/dL, Range (12.0-16.0), Hematocrit 36.8 %, Range (36.0-47.0), Mean Corpuscular Volume 87.9 fl, Range (81.0-99.0), Mean Corpuscular Hemoglobin 29.5 pg, Range (27.0-31.0), Mean Corpuscular HGB CONC 33.5 g/dL, Range (32.0-36.0), RBC Distribution Width 13.5 %, Range (11.5-14.5), Platelet Count 215 thou/uL, Range (130-400), *Mean Platelet Volume 6.9 - L fL, Range (7.4-10.4), *%Neutrophils 40.3 - L %, Range (42.0-75.0), %Lymphocytes 49.3 %, Range (21.0-51.0), %Monocytes 7.4 %, Range (0.0-10.0), %Eosinophils 1.6 %, Range (0.0-10.0), &a-1R&a+25V*p+0X*u5290E*c202B*c15G*c2P*p-0X&a-25V&a+1R Name: Beverly Estrella Bhargavi : 1965 F51 MedRec: [id number] AcctNum: [id number] Prepared: Chana Nov 08, 2016 16:03 by Interface Page 10 of 12 pMD [facility] EMERGENCY RECORD *%Basophils 1.5 - H %, Range (0.0-1.0), #Neutrophils 2.0 thou/uL, Range (1.40-6.50), #Lymphocytes 2.5 thou/uL, Range (1.20-3.40), #Monocytes 0.4 thou/uL, Range (0.11-0.59), #Eosinphils 0.1 thou/uL, Range (0.0-0.7), #Basophils 0.1 thou/uL, Range (0.0-0.2). (14:32 ABUS) Drug Screen, Urine Collection DT: MonNov 08, 2016 14:21, THC/Cannabinoid Screen Not Detected , Range (NotDetected), Phencyclidine (PCP) Not Detected , Range (NotDetected), Cocaine Metabolite Screen Not Detected , Range (NotDetected), Methamphetamine Not Detected , Range (NotDetected), *Opiate Screen Detected - H , Range (NotDetected), Amphetamine Not Detected , Range (NotDetected), Benzodiazepine Screen Not Detected , Range (NotDetected), Tricyclic Screen Not Detected , Range (NotDetected), Methadone Not Detected , Range (NotDetected), Barbiturates Screen Not Detected , Range (NotDetected), Oxycodone Screen Not Detected , Range (NotDetected), Propoxyphene Screen Not Detected , Range (NotDetected), Drug Screen Cutoff , Range (), The [employer] Profile-V Panel for Qualitative Drugs of Abuse assays are for, presumptive screening testing only. The drug class and detection limits, are as follows: Drug Class Detection Limit Amphetamine , 500 ng/mL* Barbiturates 200 ng/mL , Benzodiazepines 150 ng/mL* Cocaine 150 ng/mL*, Methamphetamine 500 ng/mL* Methadone 200, ng/mL* Opiates 100 ng/mL* Oxycodone , 100 ng/mL PCP 25 ng/mL Propoxyphene , 300 ng/mL Tricyclic Antidepressants 300 ng/mL Cannabinoids (THC) , 50 ng/mL Tests which yield a presumptive positive result must be , tested using a more specific alternate chemical method in order to obtain, a confirmed analytical result. Additional confirmation and identification, may be ordered on a routine basis, if desired. Presumptive positive urines, are held for two weeks. . (14:43 MD) Urinalysis with Microscopic Collection DT: MonNov 08, 2016 14:15, Color Yellow , Range (Yellow), Clarity Slightly Cloudy , Range (Clear), Specific [place], Urine 1.020 , Range (1.005-1.030), pH, Urine 6.0 , Range (5.0-9.0), &a-1R&a+25V*p+0X*v5933P*c202B*c15G*c2P*p-0X&a-25V&a+1R Name: Beverly Estrella : 1965 F51 MedRec: [id number] AcctNum: [id number] Prepared: MonNov 08, 2016 16:03 by Interface Page 11 of 12 pMD [facility] EMERGENCY RECORD *Leukocyte Large - H , Range (Negative), Nitrite Negative , Range (Negative), Protein, Urine (Dipstick) Negative mg/dL, Range (Neg-Trace), Glucose, Urine (Dipstick) Negative mg/dL, Range (Negative), Ketone, Urine Negative mg/dL, Range (Negative), Urobilinogen 0.2 mg/dL, Range (0.2-1.0), Bilirubin Negative , Range (Negative), *Blood, Urine Moderate - H , Range (Negative), *RBC/HPF 11-20 - H HPF, Range (0-3), *WBC/HPF 21-50 - H HPF, Range (0-3), *Squamous Epithelial 11-20 - H HPF, Range (0-3), *Bacteria/HPF 2+ - H HPF, Range (None Seen). (14:43 MDEB) Thyroid Stimulating Hormone Collection DT: MonNov 08, 2016 13:54, Thyroid Stimulating Hormone 0.6273 uIU/mL, Range (0.35-4.94). (14:43 MDEB) Burnett: KATHERINE=MD Gonzales, Chuy LIMAEB=DANO Regalado, Adelina &a-1R&a+25V*p+0X*[id number]*c202B*c15G*c2P*p-0X&a-25V&a+1R Name: Beverly Estrella : 1965 F51 MedRec: [id number] AcctNum: [id number] Prepared: MonNov 08, 2016 16:03 by Interface Page 12 of 12 pMD MTDD
== END 2016-11-08 15:40 | disposition home or self-care (01) ==
LOC: MADERS 11:37
DX: R51 Headache (principal); I48.91 Unspecified atrial fibrillation; J45.909 Unspecified asthma, uncomplicated; F31.9 Bipolar disorder, unspecified
CPT/HCPCS: 36415; 70450; 75809; 80053; 80306; 81001; 84443; 85025; 96361; 96374; 96375; J1200; J1885; J2765; J7050

== ENCOUNTER 2016-12-05 17:43 | Emergency (ER) | payer SELFPAY ==
[2016-12-05 18:36] LABS: Bilirubin Negative (Negative); Blood, Urine Trace (Negative); Clarity Clear (Clear); Glucose, Urine (Dipstick) Negative (Negative); Leukocyte Negative (Negative); Nitrite Negative (Negative); Protein, Urine (Dipstick) Negative (Neg-Trace); Urobilinogen 0.2 mg/dL (0.2-1.0)
[2016-12-05 18:38] LABS: #Basophils 0.1 thou/uL (0.0-0.2); #Eosinphils 0.1 thou/uL (0.0-0.7); #Monocytes 0.7 thou/uL (0.11-0.59); #Neutrophils 2.5 thou/uL (1.40-6.50); %Basophils 1.6 % (0.0-1.0); %Eosinophils 0.9 % (0.0-10.0); %Lymphocytes 43.7 % (21.0-51.0); %Monocytes 11.8 % (0.0-10.0); Hemoglobin 13.5 g/dL (12.0-16.0); INR-International Normal Ratio 0.9; Mean Corpuscular HGB CONC 33.6 g/dL (32.0-36.0); Mean Corpuscular Hemoglobin 29.7 pg (27.0-31.0); Mean Corpuscular Volume 88.3 fl (81.0-99.0); Mean Platelet Volume 7.7 fL (7.4-10.4); Platelet Count 115 thou/uL (130-400); Prothrombin Time 12.4 SEC (12.0-14.7); RBC Distribution Width 13.8 % (11.5-14.5); Red Blood Cell (RBC) Count 4.56 mill/uL (4.20-5.40); White Blood Cell (WBC) Count 6.1 thou/uL (4.8-10.8)
[2016-12-05 18:40] LABS: D-Dimer Test 0.48 *mcg/mL (0.27-0.43); PTT 19.6 SEC (22.9-36.1)
[2016-12-05 18:41] LABS: CKMB 0.7 ng/mL (0-6.6); Troponin I Less than 0.010 ng/mL (< 0.028)
[2016-12-05 18:45] LABS: MDiff Complete? YES; Manual Diff?? NO
[2016-12-05 18:46] LABS: ALT (SGPT) 14 U/L (0-55); AST (SGOT) 17 U/L (5-34); Albumin 4.5 g/dL (3.5-5.0); Alkaline Phosphatase 84 U/L (40-150); Anion Gap 16 mmol/L (10-20); BUN (Urea Nitrogen) 12 mg/dL (9.8-20.1); Bilirubin, Total 0.3 mg/dL (0.2-1.2); Calc. Creatinine Clearance 0 mL/min (70-130); Calcium 9.5 mg/dL (7.8-10.44); Carbon Dioxide 24 mmol/L (22-29); Chloride 104 mmol/L (98-107); Estimated GFR-MDRD 75; Globulin 3.4 g/dL (2.4-3.5); Glucose 117 mg/dL (70-105); Potassium 4.2 mmol/L (3.5-5.1); Protein, Total 7.9 g/dL (6.0-8.3); Sodium 140 mmol/L (136-145)
[2016-12-05 18:47] LABS: Bacteria/HPF None Seen HPF (None Seen); RBC/HPF None Seen HPF (0-3); Squamous Epithelial 0-3 HPF (0-3); WBC/HPF None Seen HPF (0-3)
--- NOTE | 2016-12-05 19:17 | RAD ---
CHEST ONE VIEW: History: Chest pain. Comparison: 07-29-16 FINDINGS: The cardiac silhouette is magnified by projection. Mediastinum is midline. The ventriculoperitonea l shunt is partially visualized. There is no confluent airspace consolidation or evidence of pneumo thorax. inspector conveyor line leads overlie the chest. IMPRESSION: 1. No active cardiopulmonary abnormalities are demonstrated. POS: [facility]
--- NOTE | 2016-12-05 20:30 | ERRECORD ---
[facility] EMERGENCY RECORD HPI ABDOMINAL PAIN (18:50 DHAM) CHIEF COMPLAINTS: Patient presents for evaluation of abdominal pain, Patient presents for evaluation of chest pain off and on for 24 hours "like my atrial fibrillation.". HISTORIAN: History provided by patient. LOCATION FEMALE: Symptoms are localized, most severe in the suprapubic region, "I always have a bladder infection and I have another one now.". QUALITY: Pain is sharp in nature, described as stabbing, described as "where the pee comes out". SEVERITY: Current severity of pain rated as 7/10. TIME COURSE: Gradual onset of symptoms, 7 days ago for the urinary symptoms and 24 hours for hte intermittant chest pain. no chest pain now. ASSOCIATED WITH FEMALE: No associated recent antibiotic use, No associated chills, No associated constipation, No associated diarrhea, No associated fever, No associated flank pain, No associated groin pain, No associated hematemesis, No associated loss of appetite, No associated melena, Associated with nausea, for greater than 6 months, No associated night sweats, No associated trauma, No associated recent travel, Associated with urinary tract infection signs or symptoms, dysuria, frequency, hematuria, urine odor, No associated vomiting, No associated vaginal discharge, No associated vaginal bleeding. MODIFYING FACTORS FEMALE: Patient has had a hysterectomy. RELIEVED BY: Patient's condition relieved by nothing. EXACERBATED BY: Patient's condition exacerbated by urination. RISK FACTORS FEMALE: No ectopic risk factors present. ROS (19:37 DHAM) CONSTITUTIONAL: Historian denies fatigue, denies fever, denies lethargy, denies night sweats. EYES: Historian denies eye discharge, denies photophobia. ENT: Historian denies rhinorrhea, denies sinus pain, denies sore throat. CARDIOVASCULAR: Historian reports chest pain, in the left chest, no radiation, Historian denies diaphoresis, denies dyspnea on exertion, denies edema, denies exercise intolerance, denies orthopnea, denies syncope, denies palpitations. RESPIRATORY: Historian denies cough, denies shortness of breath, denies sputum. GI: Historian reports chronic abdominal pain and has really had pain similar to this for "a year and a half off and on. I think it's that mesh they put in." , Historian denies anorexia, Historian denies constipation, Historian denies diarrhea, Historian denies hematochezia, Historian denies nausea, Historian denies vomiting. GENITOURINARY FEMALE: Historian reports dysuria, reports frequency, denies hematuria, denies hot flashes, &a-1R&a+25V*p+0X*m3539H*c202B*c15G*c2P*p-0X&a-25V&a+1R Name: Beverly Estrella : 1965 F51 MedRec: [id number] AcctNum: [id number] Prepared: MonDec 06, 2016 01:14 by Interface Page 1 of 5 pMD [facility] EMERGENCY RECORD denies incontinence, denies , denies urgency, denies vaginal discharge, denies vaginal itching. MUSCULOSKELETAL: Historian denies arthralgias, denies back pain, denies myalgias. SKIN: Historian denies cellulitis, denies rash, denies skin lesions. NEUROLOGIC: Historian denies confusion, denies focal weakness, denies gait changes, denies headache, denies paresthesias. HEMO/LYMPHATIC: Historian denies anemia, denies easy bruising. PSYCHIATRIC: Historian denies alcohol abuse, denies anxiety, denies depression. NOTES: All systems reviewed, negative except as described above. PAST MEDICAL HISTORY (MonDec 05, 2016 17:51 MDEB) MEDICAL HISTORY: Notes: afib. Past medical history includes cardiac history, arrhythmia, atrial fibrillation, Past medical history includes neurological disease, migraine headaches, generalized seizures, Past medical history includes pulmonary disease, asthma Hydrocephalus dxed 2001, [employer] shunt, diabetes. FEMALE SURGICAL HISTORY: Surgical history of cholecystectomy, laparoscopic, Surgical history of section, Surgical history of hysterectomy, [employer] SHUNT 2008, BIOPSY OF BRAIN-2008, BLADDER SUSPENSION. PSYCHIATRIC HISTORY: Psychiatric history includes history of suicidal ideations, Psychiatric history includes history of suicide attempts, Psychiatric history includes, bipolar disorder. suicide attempt x 2 years ags per [place] police. bi-polar. SOCIAL HISTORY: Patient denies alcohol use, Patient denies drug use, Patient has no smoking history, Lives at home, alone, SON LIVES WITH PT OCCASIONALLY. KNOWN ALLERGIES morphine (Unconfirmed): Reaction: Hives morphine (bulk) ondansetron HCl (Unconfirmed): Reaction: Hives Penicillins Sulfa (Sulfonamide Antibiotics) CURRENT MEDICATIONS Depakote: TABLET, DELAYED RELEASE (ENTERIC COATED) : Strength - 125 mg : ORAL Patient Dose: 1000 mg Oral 2 times a day. (19:00 MDEB) meTOPROLOL tartrate: TABLET : Strength - 25 mg : ORAL Patient Dose: 1 tab(s) Oral 2 times a day. (19:01 MDEB) VITAL SIGNS VITAL SIGNS: Pulse: 70, Resp: 16, Temp: 97.8 (Tympanic), Pain: 7, Time: 12/05/2016 17:49. (17:49 MDEB) BP: 103/79, Time: 12/05/2016 17:49. (17:49 MDEB) &a-1R&a+25V*p+0X*q8684D*c202B*c15G*c2P*p-0X&a-25V&a+1R Name: Beverly Estrella : 1965 F51 MedRec: [id number] AcctNum: [id number] Prepared: Chana Dec 06, 2016 01:14 by Interface Page 2 of 5 pMD [facility] EMERGENCY RECORD BP: 106/78, Pulse: 69, Resp: 18, O2 sat: 98 on Room Air, Time: 12/05/2016 18:00. (18:00 MDEB) BP: 106/68, Pulse: 72, Resp: 18, O2 sat: 98 on Room Air, Time: 12/05/2016 18:15. (18:15 MDEB) BP: 110/74, Pulse: 66, Resp: 20, O2 sat: 98 on Room Air, Time: 12/05/2016 18:30. (18:30 MDEB) BP: 108/73, Pulse: 73, Resp: 21, O2 sat: 97 on Room Air, Time: 12/05/2016 19:00. (19:00 MDEB) BP: 110/68, Pulse: 70, Resp: 18, O2 sat: 99 on Room Air, Time: 12/05/2016 19:30. (19:30 MDEB) BP: 105/71, Pulse: 69, Resp: 18, Pain: 0, O2 sat: 99 on Room Air, Time: 12/05/2016 19:55. (19:55 MDEB) PHYSICAL EXAM (19:39 [facility]) CONSTITUTIONAL: Vital signs reviewed, Patient afebrile, Pulse normal, Blood pressure normal, Respiratory rate normal, Patient appears non toxic, Patient appears pain free, Patient alert and oriented to person, place and time. HEAD: Head exam normal, Head exam included findings of head atraumatic, normocephalic. EYES: Eye exam included findings of eyelids normal to inspection, Pupils equally round and reactive to light, Extraocular muscles intact, Conjunctiva normal, Sclera normal. ENT: Ear exam normal, Nose exam normal, Pharynx exam normal, Uvula exam normal, Tonsil exam normal, Mouth exam normal, mucous membranes moist. NECK: Neck exam normal, Neck exam included findings of normal range of motion, Trachea midline, no meningeal signs, no jugular venous distention, no cervical adenopathy. RESPIRATORY CHEST: Respiratory and chest exam normal, Respiratory exam included findings of no respiratory distress, Breath sounds clear, No wheezing, No rales, Breath sounds not diminished. CARDIOVASCULAR: Cardiovascular exam included findings of heart rate regular rate and rhythm, Heart sounds normal, normal S1, normal S2, no murmurs, Pedal pulses normal. ABDOMEN FEMALE: Abdominal exam normal, Abdominal exam included findings of abdomen with mild suprapubic pain to palpation, Bowel sounds normal, Liver normal, Spleen normal, no distension, no mass, no peritoneal signs, no rigidity, no guarding, no rebound. BACK: Back exam normal, Back exam included findings of normal inspection, range of motion normal, no tenderness. UPPER EXTREMITY: Upper extremity exam normal, Upper extremity exam included findings of inspection normal, Range of motion normal, Motor strength normal, Sensation intact. LOWER EXTREMITY: Lower extremity exam normal, Lower extremity exam included findings of inspection normal, Range of motion normal, Motor strength normal, Sensation intact, Pedal pulse normal. NEURO: Ruth coma scale 15, Neuro exam findings include patient oriented to person, place and time, Speech normal, Gait normal, Cranial nerves intact, Deep tendon reflexes normal, no focal motor &a-1R&a+25V*p+0X*f1098M*c202B*c15G*c2P*p-0X&a-25V&a+1R Name: Beverly Estrella Bhargavi : 1965 F51 MedRec: [id number] AcctNum: [id number] Prepared: Chana Dec 06, 2016 01:14 by Interface Page 3 of 5 pMD [facility] EMERGENCY RECORD deficits, no focal sensory deficits, no cerebellar deficits. SKIN: Skin exam normal, Skin exam included findings of skin warm, dry, and normal in color, no rash. LYMPHATIC: Lymphatic exam normal, Lymphatic exam included findings of cervical nodes normal. PSYCHIATRIC: Psychiatric exam included findings of patient oriented to person place and time, Normal affect, Judgment normal, Insight normal, Remote memory normal, Recent memory normal, Concentration normal, No suicidal ideations. EKG INTERPRETATION (18:06 DHAM) 12 LEAD EKG INTERPRETATION: 12 lead EKG interpreted by Emergency Department Physician at time of study, 12 lead EKG shows normal sinus rhythm, Rate (beats per minute): 68, with no ectopics, Compared with previous EKG from, 07/29/2016 18:09, Similar to old EKG, Conduction normal, ST segments normal, T waves normal, [place] normal, Other findings include:, non specific st and t wave changes. MEDICATION ADMINISTRATION SUMMARY Drug Name: *Aspirin Childrens, Dose Ordered: 4 tab(s), Route: Oral, Status: Given, Time: 18:40 12/05/2016, *Additional information available in notes, Detailed record available in Medication Service section. DOCTOR NOTES TEXT: no valproic acid level available here. (19:01 DHAM) Pt's d dimer is a tiny bit elevated. Her wells score is 0 and I do not think further evaluation is indicated at this time. I suspect the risk of the test would be higher than the low risk of PE. I will culture her urine due to her symptoms. (19:24 DHAM) I see no signs of ACS and really her exam and labs are reassuring as well. She is going to see her pcp as she thinks the mesh is causing her pain. see dci. will cx the urine due to her symptoms despite the normal urinalysis. (19:42 DHAM) PROBLEM LIST No recorded problems DIAGNOSIS (19:44 DHAM) FINAL: PRIMARY: Lower abdominal pain, ADDITIONAL: DYSURIA. PRESCRIPTION No recorded prescriptions DISPOSITION PATIENT: Disposition Type: Discharge, Disposition: *Discharge Home. (19:44 DHAM) &a-1R&a+25V*p+0X*p3750A*c202B*c15G*c2P*p-0X&a-25V&a+1R Name: Beverly Estrella : 1965 F51 MedRec: [id number] AcctNum: [id number] Prepared: MonDec 06, 2016 01:14 by Interface Page 4 of 5 pMD [facility] EMERGENCY RECORD Patient left the department. (20:03 KRISTIE) Burnett: RENETTA=MD Heriberto, Narendra FLOWERS=DANO Regalado, Adelina &a-1R&a+25V*p+0X*[id number]*c202B*c15G*c2P*p-0X&a-25V&a+1R Name: Beverly Estrella : 1965 F51 MedRec: [id number] AcctNum: [id number] Prepared: MonDec 06, 2016 01:14 by Interface Page 5 of 5 pMD MTDD
--- NOTE | 2016-12-05 20:33 | PICIS ---
[facility] EMERGENCY RECORD TRIAGE (MonDec 05, 2016 17:51 MDEB) PATIENT: NAME: Beverly Estrella, AGE: 51, GENDER: female, : Mon1965, TIME OF GREET: MonDec 05, 2016 17:44, PREFERRED LANGUAGE: Icelandic, RACE: WHITE, ETHNICITY: Not or , FALL RISK: NO, ECODE BILLING MAP: [facility], SSN: [id number], Zip Code: [address], KG WEIGHT: 81.65, PHONE: , , , PERSON ID: [id number], PCP: Maida BENITEZ AUBREY. (MonDec 05, 2016 17:51 MDEB) TRIAGE NOTES: CHEST PAIN SUPRABUBIC PAIN. (MonDec 05, 2016 17:51 MDEB) COMPLAINT: CHEST & ABDOMINAL PAIN. (MonDec 05, 2016 17:51 MDEB) ADMISSION: URGENCY: 3 Urgent, ADMISSION SOURCE: Home, TRANSPORT: Walk-in, BED: TRIAGE. (MonDec 05, 2016 17:51 MDEB) IMMUNIZATIONS: Tetanus not up to date. (MonDec 05, 2016 17:51 MDEB) TRIAGE SCREENING: Patient denies suicidal ideation, Patient denies presence of domestic violence. (MonDec 05, 2016 17:51 MDEB) PROVIDERS: TRIAGE NURSE: Adelina Regalado RN. (MonDec 05, 2016 17:51 MDEB) VITAL SIGNS: Pulse 70, Resp 16, Temp 97.8, (Tympanic), Pain 7, Time 12/05/2016 17:49. (17:49 MDEB) PREVIOUS VISIT ALLERGIES: morphine (bulk), Penicillins, Sulfa (Sulfonamide Antibiotics). (MonDec 05, 2016 17:51 MDEB) KNOWN ALLERGIES morphine (Unconfirmed): Reaction: Hives morphine (bulk) ondansetron HCl (Unconfirmed): Reaction: Hives Penicillins Sulfa (Sulfonamide Antibiotics) CURRENT MEDICATIONS Depakote: TABLET, DELAYED RELEASE (ENTERIC COATED) : Strength - 125 mg : ORAL Patient Dose: 1000 mg Oral 2 times a day. (19:00 MDEB) meTOPROLOL tartrate: TABLET : Strength - 25 mg : ORAL Patient Dose: 1 tab(s) Oral 2 times a day. (19:01 MDEB) VITAL SIGNS VITAL SIGNS: Pulse: 70, Resp: 16, Temp: 97.8 (Tympanic), Pain: 7, Time: 12/05/2016 17:49. (17:49 MDEB) BP: 103/79, Time: 12/05/2016 17:49. (17:49 MDEB) BP: 106/78, Pulse: 69, Resp: 18, O2 sat: 98 on Room Air, Time: 12/05/2016 18:00. (18:00 MDEB) BP: 106/68, Pulse: 72, Resp: 18, O2 sat: 98 on Room Air, Time: 12/05/2016 18:15. (18:15 MDEB) BP: 110/74, Pulse: 66, Resp: 20, O2 sat: 98 on Room Air, Time: 12/05/2016 18:30. (18:30 MDEB) &a-1R&a+25V*p+0X*n3333H*c202B*c15G*c2P*p-0X&a-25V&a+1R Name: Beverly Estrella : 1965 F51 MedRec: [id number] AcctNum: [id number] Prepared: herman Dec 06, 2016 01:14 by Interface Page 1 of 12 pMD [facility] EMERGENCY RECORD BP: 108/73, Pulse: 73, Resp: 21, O2 sat: 97 on Room Air, Time: 12/05/2016 19:00. (19:00 MDEB) BP: 110/68, Pulse: 70, Resp: 18, O2 sat: 99 on Room Air, Time: 12/05/2016 19:30. (19:30 MDEB) BP: 105/71, Pulse: 69, Resp: 18, Pain: 0, O2 sat: 99 on Room Air, Time: 12/05/2016 19:55. (19:55 MDEB) NURSING ASSESSMENT: CARDIOVASCULAR (17:51 MDEB) CONSTITUTIONAL: Patient arrives ambulatory, Gait steady, History obtained from patient, Patient appears, anxious, Patient cooperative, Patient alert, Oriented to person, place and time, Skin warm, Skin dry, Skin normal in color, Mucous membranes pink, Mucous membranes moist, Patient is well-groomed, Patient complains of INTERMITTENT CHEST PAIN FOR LAST 24 HRS, PT ALSO REPORTS SUPRAPUBIC PAIN. REPORTS SHE HAS FREQUENT UTI'S ET PROBLEMS WITH BLADDER MESH. PAIN: on a scale 0-10 patient rates pain as 7, Pain exacerbated by nothing, Nothing has been tried to alleviate the pain. CARDIOVASCULAR: Cardiovascular assessment findings include heart rate normal, Heart rhythm, sinus arrhythmia, Heart sounds normal, S1, S2, Notes: DENIES ANY OTHER SYMPTOMS AT THIS TIME. RESPIRATORY/CHEST: Breath sounds clear, Respiratory assessment findings include respiratory effort easy, Respirations regular, Conversing normally, Neck and chest exam findings include trachea midline, Chest expansion equal, Chest movement symmetrical. NOTES: Emotional support needed and given, Patient tolerated procedure well. SAFETY: Side rails up, Cart/Stretcher in lowest position, Family at bedside, Call light within reach, Hospital ID band on. NURSING PROCEDURE: HUMAN SERVICES INSTRUCTOR (17:51 KRISTIE) PATIENT IDENTIFIER: Patient actively involved in identification process, Patient's identity verified by patient stating name, Patient's identity verified by hospital ID bracelet. HUMAN SERVICES INSTRUCTOR: Cardiac monitoring indicated for complaint of chest pain, Patient placed on renewable energy technician, Heart rate: 70, showing sinus arrhythmia, Patient placed on non-invasive blood pressure monitor, Patient placed on continuous pulse oximetry. FOLLOW-UP: After procedure, alarms set and on, After procedure, patient tolerating monitoring. NOTES: Emotional support needed and given, Patient tolerated procedure well. NURSING PROCEDURE: IV PATIENT IDENITIFIER: Patient actively involved in identification process, Patient's identity verified by patient stating name, Patient's identity verified by hospital ID bracelet. (17:55 KRISTIE) &a-1R&a+25V*p+0X*q7778I*c202B*c15G*c2P*p-0X&a-25V&a+1R Name: Beverly Estrella : 1965 F51 MedRec: [id number] AcctNum: [id number] Prepared: MonDec 06, 2016 01:14 by Interface Page 2 of 12 pMD [facility] EMERGENCY RECORD Patient actively involved in identification process, Patient's identity verified by patient stating name, Patient's identity verified by hospital ID bracelet. (19:50 MDEB) IV SITE 1: IV therapy indicated for hydration, IV therapy indicated for medication administration, IV established, to the left antecubital, using a 20 gauge catheter, in one attempt, IV site prepped with CHLOROPREP, Saline lock established, Flushed with normal saline (mls): 10, Labs drawn at time of placement, labeled in the presence of the patient and sent to lab. (17:55 MDEB) FOLLOW-UP SITE 1: After procedure, sterile transparent dressing applied. (17:55 MDEB) IV discontinued, due to patient being discharged, catheter intact. (19:50 MDEB) NOTES: Emotional support needed and given, Patient tolerated procedure well. (17:55 MDEB) NURSING PROCEDURE: NURSE NOTES (18:30 MDEB) NURSES NOTES: Notes: PT REPORTS NO CHEST PAIN AT THIS TIME. DR ALVAREZ AWARE. ORDER DETAILS Order Name: HUMAN SERVICES INSTRUCTOR ED, Status: Done, Time: 18:21 12/05/2016, User: KRISTIE, - Ordered for: MD Alvarez Darren, - Entered by: MD Alvarez Darren - Mandi Dec 05, 2016 18:06, - Quantity: 1, Order Name: Cardiac Profile w/CKMB & Troponin - I, Status: Active, Time: 18:06 12/05/2016, User: RENETTA, - Ordered for: MD Alvarez Darren, - Entered by: MD Alvarez Darren - Mon Dec 05, 2016 18:06, - Quantity: 1, Order Name: CATH STRAIGHT ED, Status: Done, Time: 18:22 12/05/2016, User: KRISTIE, - Ordered for: MD Alvarez Darren, - Entered by: MD Alvarez Darren - Mon Dec 05, 2016 18:06, - Quantity: 1, Order Name: CBC with Differential, Status: Active, Time: 18:06 12/05/2016, User: RENETTA, - Ordered for: MD Alvarez Darren, - Entered by: MD Alvarez Darren - Mon Dec 05, 2016 18:06, - Quantity: 1, Order Name: Comprehensive Metabolic Panel, Status: Active, Time: 18:06 12/05/2016, User: RENETTA, - Ordered for: MD Alvarez Darren, - Entered by: MD Alvarez Darren - Mon Dec 05, 2016 18:06, - Quantity: 1, Order Name: Culture, Urine, Status: Active, Time: 19:44 12/05/2016, User: RENETTA, - Ordered for: MD Alvarez Darren, &a-1R&a+25V*p+0X*k2704U*c202B*c15G*c2P*p-0X&a-25V&a+1R Name: Beverly Estrella : 1965 F51 MedRec: [id number] AcctNum: [id number] Prepared: MonDec 06, 2016 01:14 by Interface Page 3 of 12 pMD [facility] EMERGENCY RECORD - Entered by: MD Alvarez Darren - Mon Dec 05, 2016 19:44, - Quantity: 1, Order Name: D-Dimer (Quantitative), Status: Active, Time: 18:06 12/05/2016, User: RENETTA, - Ordered for: MD Alvarez Darren, - Entered by: MD Alvarez Darren - Mon Dec 05, 2016 18:06, - Quantity: 1, Order Name: EKG 12 Lead in Emergency Room, Status: Active, Time: 18:06 12/05/2016, User: RENETTA, - Ordered for: MD Alvarez Darren, - Entered by: MD Alvarez Darren - Mon Dec 05, 2016 18:06, - Quantity: 1, Order Name: ERRT Pulse Oximeter ER, Status: Active, Time: 18:06 12/05/2016, User: RENETTA, - Ordered for: MD Alvarez Darren, - Entered by: MD Alvarez Darren - Mon Dec 05, 2016 18:06, - Quantity: 1, Order Name: Lactic Acid with repeat, Status: Active, Time: 18:06 12/05/2016, User: RENETTA, - Ordered for: MD Alvarez Darren, - Entered by: MD Alvarez Darren - Mon Dec 05, 2016 18:06, - Quantity: 1, Order Name: Protime with INR, Status: Active, Time: 18:06 12/05/2016, User: RENETTA, - Ordered for: MD Alvarez Darren, - Entered by: MD Alvarez Darren - Mon Dec 05, 2016 18:06, - Quantity: 1, Order Name: PTT, Status: Active, Time: 18:06 12/05/2016, User: RENETTA, - Ordered for: MD Alvarez Darren, - Entered by: MD Alvarez Darren - Mon Dec 05, 2016 18:06, - Quantity: 1, Order Name: SALINE LOCK, Status: Done, Time: 18:22 12/05/2016, User: KRISTIE, - Ordered for: MD Alvarez Darren, - Entered by: MD Alvarez Darren - Mon Dec 05, 2016 18:06, - Quantity: 1, Order Name: Urinalysis w/ Rflx Microscopic, Status: Active, Time: 18:06 12/05/2016, User: RENETTA, - Ordered for: MD Alvarez Darren, - Entered by: MD Alvarez Darren - Mon Dec 05, 2016 18:06, - Quantity: 1, Order Name: XR Chest 1 View Portable, Status: Active, Time: 18:06 12/05/2016, User: RENETTA, - Ordered for: MD Alvarez Darren, - Entered by: MD Alvarez Darren - Mon Dec 05, 2016 18:06, - Quantity: 1. MEDICATION ADMINISTRATION SUMMARY Drug Name: *Aspirin Childrens, Dose Ordered: 4 tab(s), Route: Oral, &a-1R&a+25V*p+0X*r3864P*c202B*c15G*c2P*p-0X&a-25V&a+1R Name: Beverly Estrella Bhargavi : 1965 F51 MedRec: [id number] AcctNum: [id number] Prepared: MonDec 06, 2016 01:14 by Interface Page 4 of 12 pMD [facility] EMERGENCY RECORD Status: Given, Time: 18:40 12/05/2016, *Additional information available in notes, Detailed record available in Medication Service section. MEDICATION SERVICE (18:40 [facility]) Aspirin Childrens: Order: Aspirin Childrens (aspirin) - Dose: 4 tab(s) : Oral Schedule: Now Notes: PER CHEST PAIN PROTOCOL Ordered by: Narendra Alvarez MD Entered by: Adelina Regalado RN MonDec 05, 2016 18:43 Documented as given by: Adelina Regalado RN MonDec 05, 2016 18:40 Patient, Medication, Dose, Route and Time verified prior to administration. Amount given: 324 mg, Site: Medication administered P.O., Correct patient, time, route, dose and medication confirmed prior to administration, Patient advised of actions and side-effects prior to administration, Allergies confirmed and medications reviewed prior to administration, Patient in position of comfort, Side rails up, Cart in lowest position, Family at bedside, Co-signed by: Narendra Alvarez MD MonDec 05, 2016 18:50. HPI ABDOMINAL PAIN (18:50 DHAM) CHIEF COMPLAINTS: Patient presents for evaluation of abdominal pain, Patient presents for evaluation of chest pain off and on for 24 hours "like my atrial fibrillation.". HISTORIAN: History provided by patient. LOCATION FEMALE: Symptoms are localized, most severe in the suprapubic region, "I always have a bladder infection and I have another one now.". QUALITY: Pain is sharp in nature, described as stabbing, described as "where the pee comes out". SEVERITY: Current severity of pain rated as 7/10. TIME COURSE: Gradual onset of symptoms, 7 days ago for the urinary symptoms and 24 hours for hte intermittant chest pain. no chest pain now. ASSOCIATED WITH FEMALE: No associated recent antibiotic use, No associated chills, No associated constipation, No associated diarrhea, No associated fever, No associated flank pain, No associated groin pain, No associated hematemesis, No associated loss of appetite, No associated melena, Associated with nausea, for greater than 6 months, No associated night sweats, No associated trauma, No associated recent travel, Associated with urinary tract infection signs or symptoms, dysuria, frequency, hematuria, urine odor, No associated vomiting, No associated vaginal discharge, No associated vaginal bleeding. MODIFYING FACTORS FEMALE: Patient has had a hysterectomy. RELIEVED BY: Patient's condition relieved by nothing. EXACERBATED BY: Patient's condition exacerbated by urination. RISK FACTORS FEMALE: No ectopic risk &a-1R&a+25V*p+0X*w6898M*c202B*c15G*c2P*p-0X&a-25V&a+1R Name: Sameer Beverly T : 1965 F51 MedRec: [id number] AcctNum: [id number] Prepared: MonDec 06, 2016 01:14 by Interface Page 5 of 12 pMD [facility] EMERGENCY RECORD factors present. ROS (19:37 DHAM) CONSTITUTIONAL: Historian denies fatigue, denies fever, denies lethargy, denies night sweats. EYES: Historian denies eye discharge, denies photophobia. ENT: Historian denies rhinorrhea, denies sinus pain, denies sore throat. CARDIOVASCULAR: Historian reports chest pain, in the left chest, no radiation, Historian denies diaphoresis, denies dyspnea on exertion, denies edema, denies exercise intolerance, denies orthopnea, denies syncope, denies palpitations. RESPIRATORY: Historian denies cough, denies shortness of breath, denies sputum. GI: Historian reports chronic abdominal pain and has really had pain similar to this for "a year and a half off and on. I think it's that mesh they put in." , Historian denies anorexia, Historian denies constipation, Historian denies diarrhea, Historian denies hematochezia, Historian denies nausea, Historian denies vomiting. GENITOURINARY FEMALE: Historian reports dysuria, reports frequency, denies hematuria, denies hot flashes, denies incontinence, denies , denies urgency, denies vaginal discharge, denies vaginal itching. MUSCULOSKELETAL: Historian denies arthralgias, denies back pain, denies myalgias. SKIN: Historian denies cellulitis, denies rash, denies skin lesions. NEUROLOGIC: Historian denies confusion, denies focal weakness, denies gait changes, denies headache, denies paresthesias. HEMO/LYMPHATIC: Historian denies anemia, denies easy bruising. PSYCHIATRIC: Historian denies alcohol abuse, denies anxiety, denies depression. NOTES: All systems reviewed, negative except as described above. PAST MEDICAL HISTORY (MonDec 05, 2016 17:51 MDEB) MEDICAL HISTORY: Notes: afib. Past medical history includes cardiac history, arrhythmia, atrial fibrillation, Past medical history includes neurological disease, migraine headaches, generalized seizures, Past medical history includes pulmonary disease, asthma Hydrocephalus dxed 2001, HAND TUFTER shunt, diabetes. FEMALE SURGICAL HISTORY: Surgical history of cholecystectomy, laparoscopic, Surgical history of section, Surgical history of hysterectomy, HAND TUFTER SHUNT 2008, BIOPSY OF BRAIN-2008, BLADDER SUSPENSION. PSYCHIATRIC HISTORY: Psychiatric history includes history of suicidal ideations, Psychiatric history includes history of suicide attempts, Psychiatric history includes, bipolar disorder. suicide attempt x 2 years ags per [place] police. bi-polar. SOCIAL HISTORY: Patient denies alcohol use, Patient denies &a-1R&a+25V*p+0X*s3885S*c202B*c15G*c2P*p-0X&a-25V&a+1R Name: Beverly Estrella : 1965 F51 MedRec: [id number] AcctNum: [id number] Prepared: MonDec 06, 2016 01:14 by Interface Page 6 of 12 pMD [facility] EMERGENCY RECORD drug use, Patient has no smoking history, Lives at home, alone, SON LIVES WITH PT OCCASIONALLY. PHYSICAL EXAM (19:39 DHAM) CONSTITUTIONAL: Vital signs reviewed, Patient afebrile, Pulse normal, Blood pressure normal, Respiratory rate normal, Patient appears non toxic, Patient appears pain free, Patient alert and oriented to person, place and time. HEAD: Head exam normal, Head exam included findings of head atraumatic, normocephalic. EYES: Eye exam included findings of eyelids normal to inspection, Pupils equally round and reactive to light, Extraocular muscles intact, Conjunctiva normal, Sclera normal. ENT: Ear exam normal, Nose exam normal, Pharynx exam normal, Uvula exam normal, Tonsil exam normal, Mouth exam normal, mucous membranes moist. NECK: Neck exam normal, Neck exam included findings of normal range of motion, Trachea midline, no meningeal signs, no jugular venous distention, no cervical adenopathy. RESPIRATORY CHEST: Respiratory and chest exam normal, Respiratory exam included findings of no respiratory distress, Breath sounds clear, No wheezing, No rales, Breath sounds not diminished. CARDIOVASCULAR: Cardiovascular exam included findings of heart rate regular rate and rhythm, Heart sounds normal, normal S1, normal S2, no murmurs, Pedal pulses normal. ABDOMEN FEMALE: Abdominal exam normal, Abdominal exam included findings of abdomen with mild suprapubic pain to palpation, Bowel sounds normal, Liver normal, Spleen normal, no distension, no mass, no peritoneal signs, no rigidity, no guarding, no rebound. BACK: Back exam normal, Back exam included findings of normal inspection, range of motion normal, no tenderness. UPPER EXTREMITY: Upper extremity exam normal, Upper extremity exam included findings of inspection normal, Range of motion normal, Motor strength normal, Sensation intact. LOWER EXTREMITY: Lower extremity exam normal, Lower extremity exam included findings of inspection normal, Range of motion normal, Motor strength normal, Sensation intact, Pedal pulse normal. NEURO: [place] coma scale 15, Neuro exam findings include patient oriented to person, place and time, Speech normal, Gait normal, Cranial nerves intact, Deep tendon reflexes normal, no focal motor deficits, no focal sensory deficits, no cerebellar deficits. SKIN: Skin exam normal, Skin exam included findings of skin warm, dry, and normal in color, no rash. LYMPHATIC: Lymphatic exam normal, Lymphatic exam included findings of cervical nodes normal. PSYCHIATRIC: Psychiatric exam included findings of patient oriented to person place and time, Normal affect, Judgment normal, Insight normal, Remote memory normal, Recent memory normal, Concentration normal, No suicidal ideations. &a-1R&a+25V*p+0X*v1562R*c202B*c15G*c2P*p-0X&a-25V&a+1R Name: Beverly Estrella : 1965 F51 MedRec: [id number] AcctNum: [id number] Prepared: Chana Dec 06, 2016 01:14 by Interface Page 7 of 12 pMD [facility] EMERGENCY RECORD EVENTS TRANSFER: Triage to Emergency Triage. (17:51 MDEB) Emergency Triage to Main ED -05. (17:57 MDEB) Removed from Emergency Main ED -05. (20:03 MDEB) EKG INTERPRETATION (18:06 DHAM) 12 LEAD EKG INTERPRETATION: 12 lead EKG interpreted by Emergency Department Physician at time of study, 12 lead EKG shows normal sinus rhythm, Rate (beats per minute): 68, with no ectopics, Compared with previous EKG from, 07/29/2016 18:09, Similar to old EKG, Conduction normal, ST segments normal, T waves normal, [place] normal, Other findings include:, non specific st and t wave changes. O2SAT INTERPRETATION (19:40 DHAM) O2SAT: Single pulse oximetry, Oxygen saturation 98%, on room air, Oxygen saturation interpretation: Normal, No intervention required. DOCTOR NOTES TEXT: no valproic acid level available here. (19:01 DHAM) Pt's d dimer is a tiny bit elevated. Her wells score is 0 and I do not think further evaluation is indicated at this time. I suspect the risk of the test would be higher than the low risk of PE. I will culture her urine due to her symptoms. (19:24 DHAM) I see no signs of ACS and really her exam and labs are reassuring as well. She is going to see her pcp as she thinks the mesh is causing her pain. see dci. will cx the urine due to her symptoms despite the normal urinalysis. (19:42 DHAM) PROBLEM LIST No recorded problems DIAGNOSIS (19:44 DHAM) FINAL: PRIMARY: Lower abdominal pain, ADDITIONAL: DYSURIA. DISPOSITION PATIENT: Disposition Type: Discharge, Disposition: *Discharge Home. (19:44 DHAM) Patient left the department. (20:03 KRISTIE) INSTRUCTION (19:46 DHAM) DISCHARGE: ABDOMINAL PAIN, UNKNOWN CAUSE, (FEMALE), DYSURIA, UNCERTAIN CAUSE (ADULT). FOLLOWUP: Maida BENITEZ, [facility] [id number], [phone]. SPECIAL: See your pcp as planned for this longstanding pain. Return for any worsening or other concerns. PRESCRIPTION &a-1R&a+25V*p+0X*i8084Y*c202B*c15G*c2P*p-0X&a-25V&a+1R Name: Beverly Estrella : 1965 F51 MedRec: [id number] AcctNum: [id number] Prepared: MonDec 06, 2016 01:14 by Interface Page 8 of 12 pMD [facility] EMERGENCY RECORD No recorded prescriptions IMAGING *EKG: Image captured from scanner. (18:34 AGAN) *DISCHARGE INSTRUCTIONS RECEIPT: Image captured from scanner. (22:06 KRISTIE) *SUPPLY CHARGE SHEET: Image captured from scanner. (22:06 KRISTIE) ADMIN (MonDec 06, 2016 01:09 DHAM) DIGITAL SIGNATURE: MD Alvarez Darren. RESULTS LABORATORY: CBC with Differential Collection DT: MonDec 05, 2016 18:19, White Blood Cell (WBC) Count 6.1 thou/uL, Range (4.8-10.8), Red Blood Cell (RBC) Count 4.56 mill/uL, Range (4.20-5.40), Hemoglobin 13.5 g/dL, Range (12.0-16.0), Hematocrit 40.3 %, Range (36.0-47.0), Mean Corpuscular Volume 88.3 fl, Range (81.0-99.0), Mean Corpuscular Hemoglobin 29.7 pg, Range (27.0-31.0), Mean Corpuscular HGB CONC 33.6 g/dL, Range (32.0-36.0), RBC Distribution Width 13.8 %, Range (11.5-14.5), *Platelet Count 115 - L thou/uL, Range (130-400), Mean Platelet Volume 7.7 fL, Range (7.4-10.4), %Neutrophils 42.0 %, Range (42.0-75.0), %Lymphocytes 43.7 %, Range (21.0-51.0), *%Monocytes 11.8 - H %, Range (0.0-10.0), %Eosinophils 0.9 %, Range (0.0-10.0), *%Basophils 1.6 - H %, Range (0.0-1.0), #Neutrophils 2.5 thou/uL, Range (1.40-6.50), #Lymphocytes 2.6 thou/uL, Range (1.20-3.40), *#Monocytes 0.7 - H thou/uL, Range (0.11-0.59), #Eosinphils 0.1 thou/uL, Range (0.0-0.7), #Basophils 0.1 thou/uL, Range (0.0-0.2). (18:40 KRISTIE) Cardiac Profile w/CKMB & TropI Collection DT: MonDec 05, 2016 18:19, CKMB 0.7 ng/mL, Range (0-6.6), Troponin I Less than 0.010 ng/mL, Range (< 0.028), Reference Range , 0.00 - 0.028 ng/mL Negative 0.029 - 0.29 ng/mL , Indeterminate Greater or Equal to 0.3 ng/mL Strongly suggests GA , . (18:44 MDEB) Lactic Acid for Sepsis Collection DT: MonDec 05, 2016 18:30, Lactic Acid - Sepsis 1.3 mmol/L, Range (0.5-2.2). (18:44 MDEB) D-Dimer (Quantitative) Collection DT: MonDec 05, 2016 18:19, See comment below , Anticoagulant? NONE Medical Necessity SUSPECT COAGULOPATHY , *D-Dimer Test 0.48 - H *mcg/mL, Range (0.27-0.43), * Reference Range Units: &a-1R&a+25V*p+0X*i3480X*c202B*c15G*c2P*p-0X&a-25V&a+1R Name: Beverly Estrella : 1965 F51 MedRec: [id number] AcctNum: [id number] Prepared: MonDec 06, 2016 01:14 by Interface Page 9 of 12 pMD [facility] EMERGENCY RECORD mcg/mL of fibrinogen equivalent, units(FEU) Based upon a retrospective study of [facility] patients in February 2006, a result of Less than 0.44 mcg/mL FEU is, predictive of the absence of a DVT or PE. . (18:44 MDEB) PTT Collection DT: MonDec 05, 2016 18:19, See comment below , Anticoagulant? NONE Medical Necessity SUSPECT COAGULOPATHY , *PTT 19.6 - L SEC, Range (22.9-36.1). (18:44 MDEB) Protime with INR Collection DT: MonDec 05, 2016 18:19, See comment below , Anticoagulant? NONE Medical Necessity SUSPECT COAGULOPATHY , Prothrombin Time 12.4 SEC, Range (12.0-14.7), INR-International Normal Ratio 0.9 , ATTENTION: READ CAREFULLY , The, recommended therapeutic ranges for oral anticoagulant treatments are: , , Low Intensity: 1.5 - 2.0 Moderate Intensity: 2.0, - 3.0 High Intensity (1): 2.5 - 3.5 High, Intensity (2): 3.0 - 4.0 CRITICAL: >, 4.0 . (18:44 MDEB) Cardiac Profile w/CKMB & TropI Collection DT: MonDec 05, 2016 18:19, CKMB 0.7 ng/mL, Range (0-6.6), Troponin I Less than 0.010 ng/mL, Range (< 0.028), Reference Range , 0.00 - 0.028 ng/mL Negative 0.029 - 0.29 ng/mL , Indeterminate Greater or Equal to 0.3 ng/mL Strongly suggests GA , . (18:55 MDEB) Lactic Acid for Sepsis Collection DT: MonDec 05, 2016 18:30, Lactic Acid - Sepsis 1.3 mmol/L, Range (0.5-2.2). (18:55 MDEB) D-Dimer (Quantitative) Collection DT: MonDec 05, 2016 18:19, See comment below , Anticoagulant? NONE Medical Necessity SUSPECT COAGULOPATHY , *D-Dimer Test 0.48 - H *mcg/mL, Range (0.27-0.43), * Reference Range Units: mcg/mL of fibrinogen equivalent, units(FEU) Based upon a retrospective study of [facility] patients in February 2006, a result of &a-1R&a+25V*p+0X*l0575R*c202B*c15G*c2P*p-0X&a-25V&a+1R Name: Beverly Estrella : 1965 F51 MedRec: [id number] AcctNum: [id number] Prepared: Chana Dec 06, 2016 01:14 by Interface Page 10 of 12 pMD [facility] EMERGENCY RECORD Less than 0.44 mcg/mL FEU is, predictive of the absence of a DVT or PE. . (18:55 MDEB) PTT Collection DT: MonDec 05, 2016 18:19, See comment below , Anticoagulant? NONE Medical Necessity SUSPECT COAGULOPATHY , *PTT 19.6 - L SEC, Range (22.9-36.1). (18:55 MDEB) Protime with INR Collection DT: MonDec 05, 2016 18:19, See comment below , Anticoagulant? NONE Medical Necessity SUSPECT COAGULOPATHY , Prothrombin Time 12.4 SEC, Range (12.0-14.7), INR-International Normal Ratio 0.9 , ATTENTION: READ CAREFULLY , The, recommended therapeutic ranges for oral anticoagulant treatments are: , , Low Intensity: 1.5 - 2.0 Moderate Intensity: 2.0, - 3.0 High Intensity (1): 2.5 - 3.5 High, Intensity (2): 3.0 - 4.0 CRITICAL: >, 4.0 . (18:55 MDEB) Urine Microscopic Collection DT: MonDec 05, 2016 18:32, RBC/HPF None Seen HPF, Range (0-3), WBC/HPF None Seen HPF, Range (0-3), Squamous Epithelial 0-3 HPF, Range (0-3), Bacteria/HPF None Seen HPF, Range (None Seen). (18:55 MDEB) Urinalysis w/ Rflx Microscopic Collection DT: MonDec 05, 2016 18:32, Color Yellow , Range (Yellow), Clarity Clear , Range (Clear), Specific [place], Urine 1.010 , Range (1.005-1.030), pH, Urine 6.0 , Range (5.0-9.0), Leukocyte Negative , Range (Negative), Nitrite Negative , Range (Negative), Protein, Urine (Dipstick) Negative mg/dL, Range (Neg-Trace), Glucose, Urine (Dipstick) Negative mg/dL, Range (Negative), Ketone, Urine Negative mg/dL, Range (Negative), Urobilinogen 0.2 mg/dL, Range (0.2-1.0), Bilirubin Negative , Range (Negative), *Blood, Urine Trace - H , Range (Negative). (18:55 MD) Comprehensive Metabolic Panel Collection DT: MonDec 05, 2016 18:19, Sodium 140 mmol/L, Range (136-145), Potassium 4.2 mmol/L, Range (3.5-5.1), Chloride 104 mmol/L, Range (98-107), Carbon Dioxide 24 mmol/L, Range (22-29), Anion Gap 16 mmol/L, Range (10-20), &a-1R&a+25V*p+0X*w9549X*c202B*c15G*c2P*p-0X&a-25V&a+1R Name: Beverly Estrella : 1965 F51 MedRec: [id number] AcctNum: [id number] Prepared: Chana Dec 06, 2016 01:14 by Interface Page 11 of 12 pMD [facility] EMERGENCY RECORD BUN (Urea Nitrogen) 12 mg/dL, Range (9.8-20.1), Creatinine 0.81 mg/dL, Range (0.6-1.1), Estimated GFR-MDRD 75 , Reference Range for Estimated GFR: Greater than 90, mL/min/1.73 m2 NOTE: The MDRD equation has not been validated for use, with the elderly (over 70 years of age), women, patients with, serious comorbid condition or persons with extremes of body size, muscle, mass, or nutritional status. , *Glucose 117 - H mg/dL, Range (70-105), Calcium 9.5 mg/dL, Range (7.8-10.44), Bilirubin, Total 0.3 mg/dL, Range (0.2-1.2), Protein, Total 7.9 g/dL, Range (6.0-8.3), NOTE: Plasma values are generally 0.3 to 0.5 g/dL higher than serum values, due to the presence of fibrinogen. , Albumin 4.5 g/dL, Range (3.5-5.0), Globulin 3.4 g/dL, Range (2.4-3.5), Alb/Glob Ratio 1.3 g/dL, Range (1.2-2.2), Alkaline Phosphatase 84 U/L, Range (40-150), AST (SGOT) 17 U/L, Range (5-34), ALT (SGPT) 14 U/L, Range (0-55). (18:55 [facility]) CBC with Differential Collection DT: MonDec 05, 2016 18:19, White Blood Cell (WBC) Count 6.1 thou/uL, Range (4.8-10.8), Red Blood Cell (RBC) Count 4.56 mill/uL, Range (4.20-5.40), Hemoglobin 13.5 g/dL, Range (12.0-16.0), Hematocrit 40.3 %, Range (36.0-47.0), Mean Corpuscular Volume 88.3 fl, Range (81.0-99.0), Mean Corpuscular Hemoglobin 29.7 pg, Range (27.0-31.0), Mean Corpuscular HGB CONC 33.6 g/dL, Range (32.0-36.0), RBC Distribution Width 13.8 %, Range (11.5-14.5), *Platelet Count 115 - L thou/uL, Range (130-400), Mean Platelet Volume 7.7 fL, Range (7.4-10.4), %Neutrophils 42.0 %, Range (42.0-75.0), %Lymphocytes 43.7 %, Range (21.0-51.0), *%Monocytes 11.8 - H %, Range (0.0-10.0), %Eosinophils 0.9 %, Range (0.0-10.0), *%Basophils 1.6 - H %, Range (0.0-1.0), #Neutrophils 2.5 thou/uL, Range (1.40-6.50), *#Monocytes 0.7 - H thou/uL, Range (0.11-0.59), #Eosinphils 0.1 thou/uL, Range (0.0-0.7), #Basophils 0.1 thou/uL, Range (0.0-0.2). (18:55 EB) Burnett: COLLEEN=DANO Perdue, Chan JACKSON=MD Heriberto, Narendra LIMAEB=DANO Regalado, dAelina &a-1R&a+25V*p+0X*s7115W*c202B*c15G*c2P*p-0X&a-25V&a+1R Name: Beverly Etsrella : 1965 F51 MedRec: [id number] AcctNum: [id number] Prepared: Chana Dec 06, 2016 01:14 by Interface Page 12 of 12 pMD MTDD
== END 2016-12-05 19:55 | disposition home or self-care (01) ==
LOC: MADERS 17:43
DX: R10.30 Lower abdominal pain, unspecified (principal); R30.0 Dysuria; I48.91 Unspecified atrial fibrillation; G43.909 Migraine, unspecified, not intractable, without status migrainosus; J45.909 Unspecified asthma, uncomplicated; E11.9 Type 2 diabetes mellitus without complications; F31.9 Bipolar disorder, unspecified; I49.9 Cardiac arrhythmia, unspecified; Z79.899 Other long term (current) drug therapy
CPT/HCPCS: 36415; 51701; 71010; 80053; 81003; 81015; 82553; 83605; 84484; 85025; 85379; 85610; 85730; 93005; 94760; A4353

== ENCOUNTER 2017-02-23 12:19 | Emergency (ER) | payer SELFPAY ==
[~2017-02-23 12:19] MED LIST changes: +Iopamidol 370 76% 100 ML VIAL ONE; -Sodium Chloride 0.9% 1,000 ML BAG ONE
[2017-02-23] MEDS ORDERED: Azithromycin 250 MG TAB ONE (14:15)
[2017-02-23] MEDS ORDERED: Clindamycin 150 MG CAP ONE (14:15)
[2017-02-23 14:49] LABS: #Basophils 0.1 thou/uL (0.0-0.2); #Eosinphils 0.1 thou/uL (0.0-0.7); #Lymphocytes 2.2 thou/uL (1.20-3.40); #Monocytes 0.9 thou/uL (0.11-0.59); #Neutrophils 6.6 thou/uL (1.40-6.50); %Basophils 1.4 % (0.0-1.0); %Eosinophils 0.8 % (0.0-10.0); %Lymphocytes 22.4 % (21.0-51.0); %Monocytes 8.9 % (0.0-10.0); %Neutrophils 66.5 % (42.0-75.0); Hemoglobin 13.2 g/dL (12.0-16.0); Mean Corpuscular HGB CONC 34.2 g/dL (32.0-36.0); Mean Corpuscular Hemoglobin 31.4 pg (27.0-31.0); Mean Corpuscular Volume 91.8 fl (81.0-99.0); Mean Platelet Volume 7.5 fL (7.4-10.4); Platelet Count 148 thou/uL (130-400); RBC Distribution Width 13.6 % (11.5-14.5); Red Blood Cell (RBC) Count 4.21 mill/uL (4.20-5.40); White Blood Cell (WBC) Count 9.9 thou/uL (4.8-10.8)
[2017-02-23 14:52] LABS: ALT (SGPT) 18 U/L (0-55); AST (SGOT) 18 U/L (5-34); Albumin 4.4 g/dL (3.5-5.0); Alkaline Phosphatase 103 U/L (40-150); Anion Gap 18 mmol/L (10-20); BUN (Urea Nitrogen) 11 mg/dL (9.8-20.1); Bilirubin, Total 0.4 mg/dL (0.2-1.2); Calc. Creatinine Clearance 0 mL/min (70-130); Calcium 9.6 mg/dL (7.8-10.44); Carbon Dioxide 22 mmol/L (22-29); Chloride 99 mmol/L (98-107); Estimated GFR-MDRD 76; Globulin 3.8 g/dL (2.4-3.5); Glucose 116 mg/dL (70-105); Potassium 4.2 mmol/L (3.5-5.1); Protein, Total 8.2 g/dL (6.0-8.3); Sodium 135 mmol/L (136-145)
--- NOTE | 2017-02-23 15:20 | CT ---
CT NECK WITH IV CONTRAST: 02/23/17 HISTORY: Right neck pain. FINDINGS: Centered at and just below the level of the right tonsil is a bilobed inflamed fluid collection santiago uring up to 1.6 x 1.2 cm greatest diameters. It slight effaces the right side of the posterior phary nx and the uvula. The airway remains patent. Reactive appearing lymph nodes are present along each j ugular chain. IMPRESSION: Right tonsillar abscess. POS: [facility]
[2017-02-23] MEDS ORDERED: Ketorolac Tromethamine 30 MG/ML VIAL ONE (16:09)
== END 2017-02-23 16:25 | disposition home or self-care (01) ==
LOC: MADERS 12:19
DX: J36 Peritonsillar abscess (principal); I48.91 Unspecified atrial fibrillation; J45.909 Unspecified asthma, uncomplicated; F31.9 Bipolar disorder, unspecified
CPT/HCPCS: 70491; 80053; 85025; 86140; 96372; 96374; J1040; J1885

== ENCOUNTER 2017-10-09 13:25 | Emergency (ER) | payer SELFPAY ==
[2017-10-09 14:05] LABS: Bilirubin Negative (Negative); Blood, Urine Small (Negative); Clarity Hazy (Clear); Glucose, Urine (Dipstick) Negative (Negative); Leukocyte Moderate (Negative); Nitrite Negative (Negative); Protein, Urine (Dipstick) Negative (Neg-Trace); Specific Gravity, Urine 1.015 (1.005-1.030); pH, Urine 7.5 (5.0-9.0)
[2017-10-09 14:11] LABS: Bacteria/HPF 1+ HPF (None Seen); Crystals/HPF 2+ AMORPH PHOS HPF (Negative); RBC/HPF 0-3 HPF (0-3)
[2017-10-09] MEDS ORDERED: Promethazine HCl 25 MG/ML VIAL ONE (14:12)
[2017-10-09] MEDS ORDERED: Ketorolac Tromethamine 30 MG/ML VIAL ONE (14:12)
--- NOTE | 2017-10-09 14:58 | CT ---
CT OF THE BRAIN WITHOUT CONTRAST: Date: 10/09/17 COMPARISON: 11/08/16. HISTORY: Headache for a day. TECHNIQUE: Multiple contiguous axial images were obtained in a CT of the brain without contrast. FINDINGS: There is a ventriculostomy catheter with its tip in the right lateral ventricle. The ventricles are m ildly prominent, but not significantly changed when compared to the prior exam. There is no evidence of hydrocephalus, intracranial hemorrhage, or extra-axial fluid collection. The calvarium is unremarkable. The visualized paranasal sinuses and mastoid air cells are well aerate d. IMPRESSION: No evidence of acute intracranial abnormality. POS: [facility]
[2017-10-09 15:19] LABS: #Basophils 0.1 thou/uL (0.0-0.2); #Eosinphils 0.1 thou/uL (0.0-0.7); #Lymphocytes 2.4 thou/uL (1.20-3.40); #Monocytes 0.5 thou/uL (0.11-0.59); #Neutrophils 2.3 thou/uL (1.40-6.50); %Basophils 1.2 % (0.0-1.0); %Eosinophils 1.7 % (0.0-10.0); %Lymphocytes 44.1 % (21.0-51.0); %Monocytes 9.5 % (0.0-10.0); %Neutrophils 43.4 % (42.0-75.0); Hemoglobin 12.1 g/dL (12.0-16.0); Mean Corpuscular HGB CONC 32.5 g/dL (32.0-36.0); Mean Corpuscular Hemoglobin 29.5 pg (27.0-31.0); Mean Platelet Volume 6.8 fL (7.4-10.4); Platelet Count 193 thou/uL (130-400); RBC Distribution Width 13.8 % (11.5-14.5); Red Blood Cell (RBC) Count 4.09 mill/uL (4.20-5.40); White Blood Cell (WBC) Count 5.3 thou/uL (4.8-10.8)
[2017-10-09] MEDS ORDERED: cefTRIAXone\\ROCEPHIN 1 GM VIAL ONE (15:27)
[2017-10-09 15:34] LABS: ALT (SGPT) 12 U/L (8-55); AST (SGOT) 12 U/L (5-34); Alkaline Phosphatase 85 U/L (40-150); Anion Gap 15 mmol/L (10-20); BUN (Urea Nitrogen) 12 mg/dL (9.8-20.1); Bilirubin, Total 0.2 mg/dL (0.2-1.2); Calc. Creatinine Clearance 0 mL/min (70-130); Calcium 9.3 mg/dL (7.8-10.44); Carbon Dioxide 24 mmol/L (22-29); Chloride 106 mmol/L (98-107); Estimated GFR-MDRD 86; Globulin 3.3 g/dL (2.4-3.5); Glucose 109 mg/dL (70-105); Lipase 31 U/L (8-78); Potassium 4.5 mmol/L (3.5-5.1); Protein, Total 7.3 g/dL (6.0-8.3); Sodium 140 mmol/L (136-145)
== END 2017-10-09 16:14 | disposition home or self-care (01) ==
LOC: MADERS 13:25
DX: N30.00 Acute cystitis without hematuria (principal); G43.909 Migraine, unspecified, not intractable, without status migrainosus; I48.91 Unspecified atrial fibrillation; J45.909 Unspecified asthma, uncomplicated; E11.9 Type 2 diabetes mellitus without complications; F31.9 Bipolar disorder, unspecified; G91.9 Hydrocephalus, unspecified; Z98.2 Presence of cerebrospinal fluid drainage device; Z79.899 Other long term (current) drug therapy
CPT/HCPCS: 70450; 80053; 81003; 81015; 82150; 83690; 85025; 86140; 87086; 96374; 96375; J0696; J1885; J2550

== ENCOUNTER 2018-01-14 16:58 | Emergency (ER) | payer SELFPAY ==
[2018-01-14 18:32] LABS: Hemoglobin 12.4 g/dL (12.0-16.0); Mean Corpuscular HGB CONC 33.4 g/dL (32.0-36.0); Mean Corpuscular Hemoglobin 29.6 pg (27.0-31.0); Mean Corpuscular Volume 88.5 fL (81.0-99.0); Red Blood Cell (RBC) Count 4.18 mill/uL (4.20-5.40); White Blood Cell (WBC) Count 5.1 thou/uL (4.8-10.8)
[2018-01-14 18:33] LABS: #Eosinphils 0.1 thou/uL (0.0-0.7); #Lymphocytes 2.2 thou/uL (1.20-3.40); #Monocytes 0.4 thou/uL (0.11-0.59); #Neutrophils 2.4 thou/uL (1.40-6.50); %Basophils 0.9 % (0.0-1.0); %Eosinophils 1.3 % (0.0-10.0); %Lymphocytes 42.6 % (21.0-51.0); %Monocytes 7.5 % (0.0-10.0); %Neutrophils 47.6 % (42.0-75.0); Manual Diff?? NO; Mean Platelet Volume 7.1 fL (7.4-10.4); Platelet Count 220 thou/uL (130-400)
[2018-01-14 18:35] LABS: Bilirubin Negative (Negative); Blood, Urine Trace (Negative); Clarity Clear (Clear); Glucose, Urine (Dipstick) Negative (Negative); Leukocyte Moderate (Negative); Nitrite Negative (Negative); Protein, Urine (Dipstick) Negative (Neg-Trace); Specific Gravity, Urine 1.015 (1.005-1.030); Urobilinogen 0.2 mg/dL (0.2-1.0)
[2018-01-14 18:38] LABS: RBC/HPF 0-3 HPF (0-3); Squamous Epithelial 0-3 HPF (0-3)
[2018-01-14 18:39] LABS: Bacteria/HPF 1+ HPF (None Seen)
[2018-01-14 18:42] LABS: ALT (SGPT) 10 U/L (8-55); AST (SGOT) 12 U/L (5-34); Albumin 4.5 g/dL (3.5-5.0); Alkaline Phosphatase 103 U/L (40-150); Anion Gap 16 mmol/L (10-20); BUN (Urea Nitrogen) 12 mg/dL (9.8-20.1); Bilirubin, Total 0.2 mg/dL (0.2-1.2); Calc. Creatinine Clearance 0 mL/min (70-130); Carbon Dioxide 22 mmol/L (22-29); Chloride 106 mmol/L (98-107); Estimated GFR-MDRD 81; Globulin 3.6 g/dL (2.4-3.5); Glucose 124 mg/dL (70-105); Potassium 4.1 mmol/L (3.5-5.1); Protein, Total 8.1 g/dL (6.0-8.3); Sodium 140 mmol/L (136-145)
--- NOTE | 2018-01-14 19:22 | CT ---
HEAD CT WITHOUT CONTRAST: Date: 01-14-18 Comparison: None. History: Syncope, shunt. Technique: Serial axial CT imaging at 5 mm intervals from vertex through skull base without contrast. FINDINGS: The imaged paranasal sinuses and mastoid air cells are well aerated. There is no displaced calvarial fracture. There is a right ventriculoperitoneal shunt inserted via a parietal approach, distal tip te rminating in the region of the right lateral ventricle. Stable mild prominence of the lateral ventric les noted with no intracranial hemorrhage, midline shift, or mass effect. IMPRESSION: No acute findings. POS: [facility]
[2018-01-14] MEDS ORDERED: Nitrofurantoin Monohyd/M-Cryst 100 MG CAP ONE (19:25)
--- NOTE | 2018-01-14 19:54 | CT ---
NECK CT WITHOUT CONTRAST: Date: 01-14-18 Comparison: None. History: Syncope, fall, shunt. Technique: Serial axial CT imaging is obtained at 2.5 mm intervals from the skull base through the clarice ng apices without contrast. Coronal and sagittal reformatted imaging obtained. FINDINGS: Evaluation of the soft tissues of the neck including the vascular structures and for lymphadenopathy limited without contrast media. Imaged shunt tubing is grossly unremarkable from level of skull base through level of clavicular heads. Imaged lung apices are unremarkable. Imaged retro анна and perip haryngeal fat appears unremarkable. Submandibular glands and visualized portions of the parotid gland s appear grossly unremarkable. Limited assessment of the tonsillar pillars, epiglottis and preepiglot tic fat, hyoid bone, cricoid cartilage, thyroid cartilage and thyroid gland appear grossly unremarkab le. No acute osseous abnormality. IMPRESSION: Unremarkable noncontrast enhanced CT examination of the neck. POS: [facility]
--- NOTE | 2018-01-14 19:58 | CT ---
CT OF CHEST WITHOUT CONTRAST CT OF ABDOMEN AND PELVIS WITHOUT CONTRAST: Date: 01-14-18 Comparison: None. History: Syncope, trauma, shunt tube. Technique: Serial axial CT imaging obtained at 5 mm intervals from the thoracic inlet through the pub ic symphysis without contrast. Coronal reformatted imaging obtained. FINDINGS: The lack of contrast limits assessment of the viscera, bowel, vascular structures, and for lymphadeno delfina. Ventriculoperitoneal shunt tubing is present which extends along the anterior aspect of the ri ght hemithorax, enters the abdominal cavity at the axial level of the umbilicus to the right of midli ne, and curls in the right hemipelvis. No pneumothorax is evident on either side. The lung parenchyma is grossly unremarkable bilaterally. There is no endobronchial lesion. No pleural , paracardial, or mediastinal fluid. Osseous structures of the chest demonstrate no acute findings. There is no free intraperitoneal air present. Gallbladder is surgically absent. Limited assessment of the liver, pancreas, adrenal glands, and kidneys is unremarkable. The spleen is unremarkable. There is small volume free fluid in the pelvis, likely associated with cerebrospinal fluid. There is a dist al colonic suture line present. There is no focal area of bowel inflammatory changes or evidence of b owel obstruction seen. No acute osseous abnormality. IMPRESSION: 1. No acute findings. POS: [facility]
== END 2018-01-14 19:45 | disposition home or self-care (01) ==
LOC: MADERS 16:58
DX: N39.0 Urinary tract infection, site not specified (principal); R94.6 Abnormal results of thyroid function studies; I48.91 Unspecified atrial fibrillation; G43.909 Migraine, unspecified, not intractable, without status migrainosus; J45.909 Unspecified asthma, uncomplicated; F31.9 Bipolar disorder, unspecified; Z79.899 Other long term (current) drug therapy
CPT/HCPCS: 36415; 70450; 70490; 71250; 74177; 80053; 81003; 81015; 84443; 85025

== ENCOUNTER 2018-03-29 21:08 | Emergency (ER) | payer SELFPAY ==
[~2018-03-29 21:08] MED LIST changes: -Iopamidol 370 76% 100 ML VIAL ONE; +Sodium Chloride 0.9% 1,000 ML BAG ONE
[2018-03-29] MEDS ORDERED: Promethazine HCl 25 MG/ML VIAL ONE (21:29)
[2018-03-29] MEDS ORDERED: Famotidine In NaCl 20 mg/50 ml Premix Bag ONE (21:29)
[2018-03-29] MEDS ORDERED: Ketorolac Tromethamine 30 MG/ML VIAL ONE (21:29)
[2018-03-29 21:39] LABS: Bilirubin Small (Negative); Blood, Urine Small (Negative); Clarity Cloudy (Clear); Glucose, Urine (Dipstick) Negative (Negative); Leukocyte Trace (Negative); Nitrite Negative (Negative); Protein, Urine (Dipstick) Trace mg/dL (Neg-Trace); Urobilinogen 0.2 mg/dL (0.2-1.0)
[2018-03-29] MEDS ORDERED: Fentanyl 100 MCG/2 ML VIAL ONE (21:46)
[2018-03-29 21:55] LABS: Specific Gravity, Urine 1.032 (1.002-1.036)
[2018-03-29 21:56] LABS: Bacteria/HPF 3+ HPF (None Seen); Renal Epithelial 0-3 HPF (0-3); Transitional Epithelial 0-3 HPF (0-3); WBC/HPF 21-50 HPF (0-3); Yeast-All Forms Rare HPF (None Seen)
[2018-03-29 21:58] LABS: #Basophils 0.1 thou/uL (0.0-0.2); #Lymphocytes 1.3 thou/uL (1.20-3.40); #Monocytes 0.4 thou/uL (0.11-0.59); #Neutrophils 7.8 thou/uL (1.40-6.50); %Basophils 0.9 % (0.0-1.0); %Eosinophils 0.2 % (0.0-10.0); %Lymphocytes 13.5 % (21.0-51.0); %Monocytes 4.2 % (0.0-10.0); %Neutrophils 81.2 % (42.0-75.0); Hemoglobin 13.8 g/dL (12.0-16.0); Mean Corpuscular HGB CONC 33.4 g/dL (32.0-36.0); Mean Corpuscular Hemoglobin 28.1 pg (27.0-31.0); Mean Corpuscular Volume 84.3 fl (81.0-99.0); Mean Platelet Volume 7.6 fL (7.4-10.4); Platelet Count 304 thou/uL (130-400); RBC Distribution Width 12.5 % (11.5-14.5); White Blood Cell (WBC) Count 9.6 thou/uL (4.8-10.8)
[2018-03-29 21:59] LABS: Anion Gap 18 mmol/L (10-20); BUN (Urea Nitrogen) 14 mg/dL (9.8-20.1); Calc. Creatinine Clearance 0 mL/min (70-130); Calcium 10.1 mg/dL (7.8-10.44); Carbon Dioxide 20 mmol/L (22-29); Chloride 104 mmol/L (98-107); Estimated GFR-MDRD 75; Glucose 137 mg/dL (70-105); Potassium 4.4 mmol/L (3.5-5.1); Sodium 138 mmol/L (136-145)
== END 2018-03-29 23:23 | disposition home or self-care (01) ==
LOC: MADERS 21:08
DX: N39.0 Urinary tract infection, site not specified (principal); I48.91 Unspecified atrial fibrillation; J45.909 Unspecified asthma, uncomplicated; E11.9 Type 2 diabetes mellitus without complications; F31.9 Bipolar disorder, unspecified
CPT/HCPCS: 36415; 80048; 81003; 81015; 82150; 85025; 96361; 96365; 96375; J1885; J2550; J3010; J7050

== ENCOUNTER 2018-11-20 13:08 | Emergency (ER) | payer SELFPAY ==
[2018-11-20] MEDS ORDERED: Ketorolac Tromethamine 30 MG/ML VIAL ONE (13:56)
[2018-11-20] MEDS ORDERED: Sodium Chloride 0.9% 1,000 ML ONE (13:56)
[2018-11-20] MEDS ORDERED: Metoclopramide HCl 10 MG/2 ML VIAL ONE (13:56)
[2018-11-20] MEDS ORDERED: diphenhydrAMINE 50 MG/ML VIAL ONE (13:56)
--- NOTE | 2018-11-20 15:33 | CT ---
CT BRAIN: History: Headache, hydrocephalus, OCCUPATIONAL NURSE shunt, history of migraines. Technique: Noncontrast enhanced CT images of the brain obtained. Brain and bone windows obtained. Comparison: 01-14-18 FINDINGS: Images demonstrate a right parietal ventriculoperitoneal shunt in place. The lateral ventricles are s table and unchanged in size. No significant evidence of hydrocephalus seen. The subarachnoid spaces a re unremarkable. No evidence of intracranial hemorrhages or mass lesions seen. IMPRESSION: Stable CT appearance of the brain, not significantly changed since the previous exam. POS: [facility]
== END 2018-11-20 15:08 | disposition home or self-care (01) ==
LOC: MADERS 13:08
DX: G43.909 Migraine, unspecified, not intractable, without status migrainosus (principal); I48.91 Unspecified atrial fibrillation; J45.909 Unspecified asthma, uncomplicated; E11.9 Type 2 diabetes mellitus without complications; F31.9 Bipolar disorder, unspecified
CPT/HCPCS: 70450; 96374; 96375; J1200; J1885; J2765; J7050

== ENCOUNTER 2019-02-15 20:27 | Emergency (ER) | payer SELFPAY ==
[2019-02-15 21:55] LABS: Bilirubin Negative (Negative); Blood, Urine Moderate (Negative); Glucose, Urine (Dipstick) Negative (Negative); Leukocyte Trace (Negative); Nitrite Negative (Negative); Protein, Urine (Dipstick) Negative (Neg-Trace); Urobilinogen 0.2 mg/dL (0.2-1.0); pH, Urine 5.5 (5.0-9.0)
[2019-02-15 21:56] LABS: Clarity Hazy (Clear); Specific Gravity, Urine 1.031 (1.002-1.036)
[2019-02-15 21:57] LABS: Bacteria/HPF Rare-Few HPF (None Seen)
== END 2019-02-15 22:20 | disposition home or self-care (01) ==
LOC: MADERS 20:27
DX: L30.9 Dermatitis, unspecified (principal); R30.0 Dysuria; J45.909 Unspecified asthma, uncomplicated; F31.9 Bipolar disorder, unspecified; Z79.899 Other long term (current) drug therapy
CPT/HCPCS: 81003; 81015; 99283

== ENCOUNTER 2019-07-27 12:59 | Emergency (ER) | payer SELFPAY ==
[2019-07-27] MEDS ORDERED: cefTRIAXone\\ROCEPHIN 1 GM VIAL ONE (13:30)
== END 2019-07-27 14:00 | disposition home or self-care (01) ==
LOC: MADERS 12:59
DX: J03.90 Acute tonsillitis, unspecified (principal); I48.91 Unspecified atrial fibrillation; G43.909 Migraine, unspecified, not intractable, without status migrainosus; J45.909 Unspecified asthma, uncomplicated; F31.9 Bipolar disorder, unspecified; Z79.899 Other long term (current) drug therapy
CPT/HCPCS: 96372; 99282; J0696

== ENCOUNTER 2020-01-15 08:12 | Emergency (ER) | payer SELFPAY ==
[2020-01-15] MEDS ORDERED: diphenhydrAMINE 50 MG/ML VIAL ONE (08:55)
[2020-01-15] MEDS ORDERED: Ketorolac Tromethamine 30 MG/ML VIAL ONE (08:55)
[2020-01-15] MEDS ORDERED: Metoclopramide HCl 10 MG/2 ML VIAL ONE (08:55)
== END 2020-01-15 10:40 | disposition home or self-care (01) ==
LOC: MADERS 08:12
DX: G43.909 Migraine, unspecified, not intractable, without status migrainosus (principal); I48.91 Unspecified atrial fibrillation; J45.909 Unspecified asthma, uncomplicated; F31.9 Bipolar disorder, unspecified; Z79.899 Other long term (current) drug therapy
CPT/HCPCS: 96374; 96375; J1200; J1885; J2765

== ENCOUNTER 2020-04-04 21:16 | Emergency (ER) | payer SELFPAY ==
[2020-04-04] MEDS ORDERED: HYDROcodone/Acetaminophen 5/325 mg Tablet ONE (21:39)
[2020-04-04] MEDS ORDERED: Clindamycin 150 MG CAP ONE (21:39)
== END 2020-04-04 21:47 | disposition home or self-care (01) ==
LOC: MADERS 21:16
DX: K04.7 Periapical abscess without sinus (principal); K02.9 Dental caries, unspecified; I48.91 Unspecified atrial fibrillation; J45.909 Unspecified asthma, uncomplicated; F31.9 Bipolar disorder, unspecified; Z79.899 Other long term (current) drug therapy
CPT/HCPCS: 99282

== ENCOUNTER 2020-09-16 20:50 | Emergency (ER) | payer SELFPAY ==
[2020-09-17 22:51] LABS: SARS-CoV-2 MS2 Positive; SARS-CoV-2 N Gene Negative; SARS-CoV-2 S Gene Negative; SARS-CoV-2 by NAA Not Detected (NotDetected); SARS-CoV-2 orf1ab Negative
== END 2020-09-16 22:16 | disposition home or self-care (01) ==
LOC: MADERS 20:50
DX: R09.81 Nasal congestion (principal); R06.00 Dyspnea, unspecified; Z20.828 Contact with and (suspected) exposure to other viral communicable diseases; E11.9 Type 2 diabetes mellitus without complications; I48.91 Unspecified atrial fibrillation; J45.909 Unspecified asthma, uncomplicated; G43.909 Migraine, unspecified, not intractable, without status migrainosus; F31.9 Bipolar disorder, unspecified
CPT/HCPCS: 87635; 99283; U0003

== ENCOUNTER 2020-12-16 09:56 | Emergency (ER) | payer SELFPAY ==
--- NOTE | 2020-12-16 10:26 | RAD ---
Exam:2 views left forearm HISTORY: Patient fell earlier COMPARISON: None FINDINGS: No fracture, cortical irregularity or periosteal reaction. IMPRESSION: No posttraumatic change.
[2020-12-16] MEDS ORDERED: HYDROcodone/Acetaminophen 5/325 mg Tablet ONE (10:37)
--- NOTE | 2020-12-16 11:08 | RAD ---
LEFT WRIST 3 VIEWS: HISTORY: Fall. COMPARISON: None. FINDINGS: Mild widening of the scapholunate interval. No acute displaced fracture or malalignment. There is moderate degenerative disease of the thumb carpometacarpal joint. Mild distal ulnar radial ulnar joint impingement. IMPRESSION: No acute osseous abnormality. POS: [facility]
== END 2020-12-16 10:41 | disposition home or self-care (01) ==
LOC: MADERS 09:56
DX: S63.502A Unspecified sprain of left wrist, initial encounter (principal); E11.9 Type 2 diabetes mellitus without complications; I48.91 Unspecified atrial fibrillation; J45.909 Unspecified asthma, uncomplicated; Z79.899 Other long term (current) drug therapy; W00.0XXA Fall on same level due to ice and snow, initial encounter

== ENCOUNTER 2025-08-23 13:47 | Emergency (ER) | payer MEDICAID, SELFPAY ==
[~2025-08-23 13:47] MED LIST changes: +Iopamidol 370 76% 100 ML VIAL ONE; -Sodium Chloride 0.9% 1,000 ML BAG ONE
[2025-08-23 14:48] LABS: #Basophils 0.1 thou/uL (0.0-0.2); #Eosinophils 0.0 thou/uL (0.0-0.7); #Lymphocytes 2.9 thou/uL (1.20-3.40); #Monocytes 0.4 thou/uL (0.11-0.59); #Neutrophils 2.5 thou/uL (1.40-6.50); %Basophils 1.5 % (0.0-1.0); %Eosinophils 0.8 % (0.0-10.0); %Lymphocytes 48.4 % (21.0-51.0); %Monocytes 7.5 % (0.0-10.0); %Neutrophils 41.8 % (42.0-75.0); Hematocrit 41.2 % (36.0-47.0); Hemoglobin 13.5 g/dL (12.0-16.0); Mean Corpuscular Hemoglobin 28.8 pg (27.0-31.0); Mean Corpuscular Volume 87.6 fl (78.0-98.0); Platelet Count 236 10x3/uL (130-400); Red Blood Cell (RBC) Count 4.71 mill/uL (4.20-5.40); White Blood Cell (WBC) Count 5.9 10x3/uL (4.8-10.8)
[2025-08-23 15:01] LABS: INR-International Normal Ratio 1.0; Prothrombin Time 12.9 sec (12.0-14.7)
[2025-08-23 15:02] LABS: PTT 35.5 sec (22.9-36.1)
[2025-08-23 15:06] LABS: ALT (SGPT) 28 U/L (Less than 34); AST (SGOT) 22 U/L (11-34); Albumin 4.5 g/dL (3.1-4.5); Alkaline Phosphatase 81 U/L (40-110); Anion Gap 18 mmol/L (10-20); BUN (Urea Nitrogen) 10 mg/dL (9.8-20.1); Bilirubin, Total 0.3 mg/dL (0.3-1.2); Calc. Creatinine Clearance 0 mL/min (70-130); Calcium 9.6 mg/dL (7.8-10.44); Carbon Dioxide 19 mmol/L (22-29); Chloride 108 mmol/L (98-107); Globulin 3.4 g/dL (2.4-3.5); Glucose 118 mg/dL (70-105); Potassium 3.9 mmol/L (3.5-5.1); Sodium 141 mmol/L (136-145)
[2025-08-23] MEDS ORDERED: Aspirin Chewable 81 MG TAB ONE (15:14)
[2025-08-23 16:37] LABS: Troponin I 0.010 ng/mL (< 0.028)
== END 2025-08-23 16:20 | disposition short-term general hospital (02) ==
LOC: MADERS 13:47
DX: R29.810 Facial weakness (principal); R11.2 Nausea with vomiting, unspecified; E11.9 Type 2 diabetes mellitus without complications; Z79.84 Long term (current) use of oral hypoglycemic drugs
CPT/HCPCS: 36415; 36416; 70450; 70496; 70498; 75809; 80053; 84484; 85025; 85610; 85730; 93005; 94760; 96365; J2550; Q9967